=== PATIENT | female | born 1970 | race Caucasian/White ===

== ENCOUNTER 2017-10-15 10:17 | Emergency (ER) | payer OTHER ==
[2017-10-15] MEDS ORDERED: LIDOCAINE VISCOUS 2% SOLN 15 ML UDC ONE (10:51)
[2017-10-15] MEDS ORDERED: MAGNE/ALUM HYDROXD 30 ML UCUP ONE (10:51)
[2017-10-15] MEDS ORDERED: ASPIRIN 81 MG CHEWABLE TABLET ONE (10:51)
[2017-10-15 11:05] LABS: Absolute Lymphocytes (CBC) 2.7 K/uL (0.7-4.9); Absolute Monocytes 0.6 K/uL (0.1-1.3); Absolute Neutrophil 4.2 K/uL (1.8-8.0); Basophils % 0.3 % (0-1.3); Eosinophils % 1.7 % (0-4.4); Hematocrit 38.8 % (36.0-45.0); Lymphocytes % 35.1 % (15.3-44.8); MCV 89.9 fL (80-100); MPV 9.4 fL (7.6-11.3); RBC Red Blood Cell Count 4.31 M/uL (3.86-4.86)
[2017-10-15 11:13] LABS: Bicarbonate 26 mEq/L (21-31); Glucose Level 106 mg/dL (65-120); Lipase 25 U/L (22-51); Sodium Level 138 mEq/L (135-145)
--- NOTE | 2017-10-15 11:18 | RAD REPORT ---
EXAM DESCRIPTION: RAD - Chest Single View - 10/15/2017 10:56 am CLINICAL HISTORY: Chest and left shoulder pain COMPARISON: 10/05/2014 FINDINGS: Portable technique limits examination quality. The lungs are mildly emphysematous but grossly clear. The heart is normal in size. No displaced fract ures. IMPRESSION: No acute intrathoracic process suspected.
[2017-10-15 11:20] LABS: ALT/SGPT 14 IU/L (10-60); AST/SGOT 17 IU/L (10-42); Albumin 3.7 g/dL (3.2-5.5); Alkaline Phosphatase 108 IU/L (42-121); BUN Blood Urea Nitrogen 10 mg/dL (6-20); Bilirubin Direct < 0.1 mg/dL (0-0.2); Bilirubin Total 0.2 mg/dL (0.3-1.2); Creatine Phosphokinase 53 IU/L (22-269); Protein, Total 7.3 g/dL (6.0-8.3)
[2017-10-15 11:22] LABS: CKMB Creatine Kinase MB 0.7 ng/ml (0.3-4.0)
--- NOTE | 2017-10-15 11:43 | RAD REPORT ---
EXAM DESCRIPTION: US - Abdomen Exam Limited - 10/15/2017 11:36 am CLINICAL HISTORY: Abdominal pain. COMPARISON: None. FINDINGS: The gallbladder demonstrates no gallstones. No pericholecystic fluid or gallbladder wall t hickening. The common bile duct is normal measuring 4 mm. The liver demonstrates no findings of intrahepatic biliary dilatation. IMPRESSION: Unremarkable examination.
--- NOTE | 2017-10-15 12:10 | EKG ---
Test Date: 2017-10-15 Test Time: 10:36:21 Fur Dresser: RONALDO MEASUREMENT RESULTS: Intervals: Rate: 75 MS: 142 QRSD: 76 QT: 402 QTc: 448 [place]: P: 8 MS: 142 QRS: 76 T: 44 INTERPRETIVE STATEMENTS: Normal sinus rhythm Normal ECG No previous ECG available for comparison Electronically Signed On 10-15-17 12:09:02 CDT by Taj Roldan
--- NOTE | 2017-10-15 13:32 | ER ---
Nurse's Notes [facility] Name: Greta Mckinley Age: 47 yrs Sex: Female : 1970 Arrival Date: 10/15/2017 Time: 10:18 Bed 23 Private MD: Diagnosis: Chest pain, unspecified Presentation: 10/15 10:37 Presenting complaint: Patient states: started having indigestion type pain on , iw also having intermittent pain to left shoulder, radiating to left jaw, sharp pain 12/09, hx of GA with stent placement in 2013. Transition of care: patient was not received from another setting of care. Initial Sepsis Screen: Does the patient meet any 2 criteria? No. Patient's initial sepsis screen is negative. Does the patient have a suspected source of infection? No. Patient initial sepsis screen negative. Onset of symptoms was October 12, 2017. Care prior to arrival: None. 10:37 Method Of Arrival: Wheelchair iw 10:37 Acuity: ZEYAD 2 iw Historical: - Allergies: 10:42 PENICILLINS; iw - Home Meds: 10:42 None [Active]; iw - PMHx: 10:42 Myocardial infarction; iw - PSHx: 10:42 Tubal ligation; Hysterectomy; Heart stents; iw - Immunization history:: Adult Immunizations not up to date. - Family history:: not pertinent. - Social history:: Smoking status: unknown. - Hospitalizations: : No recent hospitalization is reported. Screenin:55 Abuse screen: Denies threats or abuse. Nutritional screening: No deficits noted. la1 Tuberculosis screening: No symptoms or risk factors identified. Fall Risk None identified. Assessment: 10:54 General: Appears uncomfortable, Behavior is calm, cooperative. Pain: Complains of pain la1 in anterior aspect of left upper chest and left breast Pain does not radiate. Pain began 2-3 days ago. Neuro: Level of Consciousness is awake, alert, obeys commands, Oriented to person, place, time, situation. Cardiovascular: Heart tones S1 S2 present Capillary refill < 3 seconds Patient's skin is warm and dry. Rhythm is sinus rhythm. Respiratory: Airway is patent Respiratory effort is even, unlabored, Respiratory pattern is regular, symmetrical, Breath sounds are clear bilaterally. GI: Abdomen is round non-distended, Bowel sounds present X 4 quads. Abd is soft and non tender X 4 quads. : No signs and/or symptoms were reported regarding the genitourinary system. 12:57 Reassessment: Patient appears in no apparent distress at this time. No changes from la1 previously documented assessment. Patient and/or family updated on plan of care and expected duration. Pain level reassessed. Patient is alert, oriented x 3, equal unlabored respirations, skin warm/dry/pink. Vital Signs: 10:39 BP 135 / 85; Pulse 84; Resp 18 S; Pulse Ox 95% on R/A; Pain 6/10; iw 11:48 BP 128 / 77; Pulse 66; Resp 13; Pulse Ox 100% on R/A; la1 13:20 BP 120 / 84; Pulse 65; Resp 16; Temp 97.6; Pulse Ox 100% on R/A; la1 ED Course: 10:18 Patient arrived in ED. as 10:36 Antonio Guzmán MD is Attending Physician. rn 10:37 Mehreen Rivas, VISH is Primary Nurse. iw 10:39 Triage completed. iw 10:39 Arm band placed on. iw 10:45 EKG done, by digital tech. reviewed by Antonio Guzmán MD. at1 10:53 X-ray completed. Portable x-ray completed in exam room. Patient tolerated procedure ag1 well. 10:54 XRAY Chest (1 view) In Process Unspecified. EDMS 10:54 Genaro Raymundo, RN is Primary Nurse. la1 10:55 Placed in gown. Bed in low position. Call light in reach. court monitor on. Pulse ox la1 on. NIBP on. 10:55 No provider procedures requiring assistance completed. Inserted saline lock: 20 gauge la1 in right antecubital area, using aseptic technique. Blood collected. Patient maintains SpO2 saturation greater than 95% on room air. 11:36 US Abdomen Limited In Process Unspecified. EDMS 12:54 Troponin (emerg Dept Use Only) Sent. bd 12:58 Basic Metabolic Panel Sent. dm5 13:36 IV discontinued, intact, bleeding controlled, No redness/swelling at site. Pressure la1 dressing applied. Administered Medications: 10:56 Drug: GI Cocktail without - (Maalox Suspension 30 ml, Lidocaine Liquid 2 % 15 la1 ml) Route: PO; 13:13 Follow up: Response: No adverse reaction la1 10:56 Drug: Aspirin Chewable Tablet 324 mg Route: PO; la1 13:14 Follow up: Response: No adverse reaction la1 Outcome: 13:32 Discharge ordered by . rn 13:36 Discharged to home ambulatory. la1 13:36 Condition: stable 13:36 Instructed on discharge instructions, follow up and referral plans. 13:36 Patient left the ED. la1 Signatures: Dispatcher [employer] EDMS Nimo Chamberlain Deana, RN RN Chantel Salazar Irene, RN RN iw Nieto, Roman, MD MD rn gonzales, Amanda, instrument fitter EKG Tat1 Genaro Raymundo RN RN la1 Marce Javier1
--- NOTE | 2017-10-15 13:32 | EDPHYS ---
Physician Documentation [facility] Name: Greta Mckinley Age: 47 yrs Sex: Female : 1970 Arrival Date: 10/15/2017 Time: 10:18 Bed 23 Private MD: ED Physician Antonio Guzmán HPI: 10/15 12:26 This 47 yrs old Female presents to ER via Wheelchair with complaints of Chest rn Pain. 12:26 The patient or guardian reports chest pain that is located primarily in the substernal rn area. Onset: 3 day(s) ago. The pain radiates to the left arm, the left shoulder. The chest pain is described as burning, a heaviness. Modifying factors: The symptoms are alleviated by nothing. the symptoms are aggravated by nothing. Severity of pain: At its worst the pain was moderate in the emergency department the pain has improved. The patient has experienced a previous episode. Reports substernal chest pain/upper abd pain, radiates upward to jaw/left arm, constant for 3 days, no fever/cough/sob, no vomiting. Reports had similar but not identical symptoms in past and required a stent, was having a heart attack. . Historical: - Allergies: 10:42 PENICILLINS; iw - Home Meds: 10:42 None [Active]; iw - PMHx: 10:42 Myocardial infarction; iw - PSHx: 10:42 Tubal ligation; Hysterectomy; Heart stents; iw - Immunization history:: Adult Immunizations not up to date. - Family history:: not pertinent. - Social history:: Smoking status: unknown. - Hospitalizations: : No recent hospitalization is reported. ROS: 12:26 Constitutional: Negative for fever, chills, and weight loss, Eyes: Negative for injury, rn pain, redness, and discharge, Neck: Negative for injury and swelling, Cardiovascular: Negative for palpitations, and edema, Respiratory: Negative for shortness of breath, cough, wheezing, and pleuritic chest pain, Abdomen/GI: Negative for vomiting, diarrhea, and constipation, Back: Negative for injury and pain, MS/Extremity: Negative for injury and deformity, Skin: Negative for injury, rash, and discoloration, Neuro: Negative for headache, weakness, numbness, tingling, and seizure. Exam: 12:26 Constitutional: This is a well developed, well nourished patient who is awake, alert, rn and in no acute distress. Head/Face: Normocephalic, atraumatic. Eyes: Pupils equal round and reactive to light, extra-ocular motions intact. Lids and lashes normal. Conjunctiva and sclera are non-icteric and not injected. Cornea within normal limits. Periorbital areas with no swelling, redness, or edema. Neck: Trachea midline, no thyromegaly or masses palpated, and no cervical lymphadenopathy. Supple, full range of motion without nuchal rigidity, or vertebral point tenderness. No Meningismus. Cardiovascular: Regular rate and rhythm with a normal S1 and S2. No gallops, murmurs, or rubs. Normal PMI, no JVD. No pulse deficits. Respiratory: Lungs have equal breath sounds bilaterally, clear to auscultation and percussion. No rales, rhonchi or wheezes noted. No increased work of breathing, no retractions or nasal flaring. Abdomen/GI: soft, mild epigastric tenderness, neg quintanilla MS/ Extremity: Pulses equal, no cyanosis. Neurovascular intact. Full, normal range of motion. Equal circumference. Neuro: Awake and alert, GCS 15, oriented to person, place, time, and situation. Cranial nerves II-XII grossly intact. Motor strength 5/5 in all extremities. Sensory grossly intact. Cerebellar exam normal. Vital Signs: 10:39 BP 135 / 85; Pulse 84; Resp 18 S; Pulse Ox 95% on R/A; Pain 6/10; iw 11:48 BP 128 / 77; Pulse 66; Resp 13; Pulse Ox 100% on R/A; la1 13:20 BP 120 / 84; Pulse 65; Resp 16; Temp 97.6; Pulse Ox 100% on R/A; la1 MDM: 10:36 Patient medically screened. rn 13:30 Differential diagnosis: acute myocardial infarction, acute pericarditis, anxiety, rn coronary artery disease costochondritis, esophagitis, gastritis, gastroesophageal reflux disease (GERD), stable angina, unstable angina. The patient was given aspirin in the Emergency Department. Data reviewed: vital signs, nurses notes, lab test result(s), EKG, radiologic studies, plain films, ultrasound, and as a result, I will discharge patient. Counseling: I had a detailed discussion with the patient and/or guardian regarding: the historical points, exam findings, and any diagnostic results supporting the discharge/admit diagnosis, lab results, radiology results, the need for outpatient follow up, to return to the emergency department if symptoms worsen or persist or if there are any questions or concerns that arise at home. Special discussion: I discussed with the patient/guardian in detail that at this point there is no indication for admission to the hospital. It is understood, however, that if the symptoms persist or worsen the patient needs to return immediately for re-evaluation. ED course: Repeat trop negative, ecg without ischemia, will dc home with cardiology f/u, may be angina but no acute AK, patient not helping herself as she stopped her aspirin/brilinta/and continues to smoke. 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 Return precautions given and understood. . 10/15 10:45 Order name: Basic Metabolic Panel rn 10/15 10:45 Order name: CBC with Diff; Complete Time: 11:47 rn 10/15 10:45 Order name: Ckmb; Complete Time: 11:47 rn 10/15 10:45 Order name: CPK; Complete Time: 11:47 rn 10/15 10:45 Order name: LFT's; Complete Time: 11:47 rn 10/15 10:45 Order name: Troponin (emerg Dept Use Only); Complete Time: 11:47 rn 10/15 10:45 Order name: XRAY Chest (1 view); Complete Time: 11:47 rn 10/15 10:45 Order name: Lipase; Complete Time: 11:47 rn 10/15 10:46 Order name: Basic Metabolic Panel; Complete Time: 11:47 EDMS 10/15 10:46 Order name: US Abdomen Limited; Complete Time: 11:47 rn 10/15 12:42 Order name: Troponin (emerg Dept Use Only) la1 10/15 12:43 Order name: Troponin (Emerg Dept Use Only); Complete Time: 13:32 EDMS 10/15 10:45 Order name: EKG; Complete Time: 10:46 rn 10/15 10:45 Order name: Cardiac monitoring; Complete Time: 10:56 rn 10/15 10:45 Order name: EKG - Nurse/Tech; Complete Time: 10:56 rn 10/15 10:45 Order name: IV Saline Lock; Complete Time: 10:56 rn 10/15 10:45 Order name: Labs collected and sent; Complete Time: 10: rn 10/15 10:45 Order name: O2 Per Protocol; Complete Time: : rn 10/15 10:45 Order name: O2 Sat Monitoring; Complete Time: 10:56 rn Administered Medications: 10:56 Drug: GI Cocktail without - (Maalox Suspension 30 ml, Lidocaine Liquid 2 % 15 la1 ml) Route: PO; 13:13 Follow up: Response: No adverse reaction la1 10:56 Drug: Aspirin Chewable Tablet 324 mg Route: PO; la1 13:14 Follow up: Response: No adverse reaction la1 Disposition: 10/15/17 13:32 Discharged to Home. Impression: Chest pain, unspecified. - Condition is Stable. - Discharge Instructions: Nonspecific Chest Pain, Smoking Cessation. - Medication Reconciliation Form, Thank You Letter, Antibiotic Education, Prescription Opioid Use form. - Follow up: Private Physician; When: As needed; Reason: Recheck today's complaints, Re-evaluation by your physician. - Problem is new. - Symptoms have improved. Signatures: Dispatcher [employer] EDMehreen Rick RN RN iw Nieto, Roman, MD MD rn Attema, Lee, RN RN la1 Corrections: (The following items were deleted from the chart) 10: 10:45 Urine Test ordered. arun negrete 10:56 10:46 BNP+C.LAB.BRZ ordered. EDIL EDMS
[2017-10-15 13:43] VITALS: O2SAT 100
[2017-10-15 13:44] VITALS: BP 120/84; TEMP 97.6
== END 2017-10-15 13:36 | disposition home or self-care (01) ==
LOC: ER 10:17
DX: R07.9 Chest pain, unspecified (principal); Z88.0 Allergy status to penicillin; I25.2 Old myocardial infarction; Z95.818 Presence of other cardiac implants and grafts
CPT/HCPCS: 36415; 71045; 76705; 80048; 80076; 82550; 82553; 83690; 84484; 85025; 93005; 99285

== ENCOUNTER 2018-04-12 10:48 | Emergency (ER) | payer OTHER ==
--- NOTE | 2018-04-12 12:07 | RAD REPORT ---
EXAM DESCRIPTION: RAD - Chest Pa And Lat (2 Views) - 04/12/2018 11:56 am CLINICAL HISTORY: COUGH Chest pain. COMPARISON: Chest Single View dated 10/15/2017; CHEST SINGLE VIEW dated 10/05/2014; CHEST SINGLE VIEW d ated 11/20/2013; CHEST PA AND LAT 2 VIEW dated 07/15/2013 FINDINGS: The lungs are mildly emphysematous but clear. The heart is normal in size. No displaced fr actures. IMPRESSION: Mild COPD.
--- NOTE | 2018-04-12 13:41 | EDPHYS ---
Physician Documentation [facility] Name: Greta Mckinley Age: 48 yrs Sex: Female : 1970 Arrival Date: 04/12/2018 Time: 10:52 Bed X-Ray Private MD: ED Physician Pedro Luis Olmos HPI: 04/12 14:00 This 48 yrs old Female presents to ER via Ambulatory with complaints of pm1 Breathing Difficulty. 14:00 The patient or guardian reports cough, with productive sputum, that is white, Sinus pm1 congestion and post nasal drainage. Onset: The symptoms/episode began/occurred 2 week(s) ago. Severity of symptoms: in the emergency department the symptoms are actually worse. Modifying factors: The symptoms are alleviated by nothing, the symptoms are aggravated by Coughing. Coughing causes pain to right lower ribs. Associated signs and symptoms: Pertinent negatives: chest pain, diarrhea, ear ache, fever, nausea, sore throat, vomiting. similar symptoms around this time of year. 14:00 1.5 pack smoker per day. 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 - Social history:: Smoking status: Patient uses tobacco products, smokes one-half pack cigarettes per day. - Ebola Screening: : Patient negative for fever greater than or equal to 101.5 degrees Fahrenheit, and additional compatible Ebola Virus Disease symptoms Patient denies exposure to infectious person Patient denies travel to an Ebola-affected area in the 21 days before illness onset No symptoms or risks identified at this time. ROS: 14:00 Constitutional: Negative for fever, chills, and weight loss, Eyes: Negative for injury, pm1 pain, redness, and discharge. 14:00 Neck: Negative for injury, pain, and swelling, Cardiovascular: Negative for chest pain, palpitations, and edema. 14:00 Abdomen/GI: Negative for abdominal pain, nausea, vomiting, diarrhea, and constipation, Back: Negative for injury and pain, : Negative for injury, bleeding, discharge, and swelling, MS/Extremity: Negative for injury and deformity, Skin: Negative for injury, rash, and discoloration. 14:00 ENT: Positive for sinus congestion, sinus pain, Negative for drainage from ear(s), ear pain. 14:00 Respiratory: Positive for cough, shortness of breath, Negative for wheezing. Exam: 14:00 Constitutional: This is a well developed, well nourished patient who is awake, alert, pm1 and in no acute distress. Head/Face: Normocephalic, atraumatic. Eyes: Pupils equal round and reactive to light, extra-ocular motions intact. Lids and lashes normal. Conjunctiva and sclera are non-icteric and not injected. Cornea within normal limits. Periorbital areas with no swelling, redness, or edema. ENT: Nares patent. No nasal discharge, no septal abnormalities noted. Tympanic membranes are normal and external auditory canals are clear. Oropharynx with no redness, swelling, or masses, exudates, or evidence of obstruction, uvula midline. Mucous membranes moist. Neck: Trachea midline, no thyromegaly or masses palpated, and no cervical lymphadenopathy. Supple, full range of motion without nuchal rigidity, or vertebral point tenderness. No Meningismus. Chest/axilla: Normal chest wall appearance and motion. Nontender with no deformity. No lesions are appreciated. Cardiovascular: Regular rate and rhythm with a normal S1 and S2. No gallops, murmurs, or rubs. No pulse deficits. Respiratory: Lungs have equal breath sounds bilaterally, clear to auscultation and percussion. No rales, rhonchi or wheezes noted. No increased work of breathing, no retractions or nasal flaring. Abdomen/GI: Soft, non-tender, with normal bowel sounds. No distension or tympany. No guarding or rebound. No evidence of tenderness throughout. Back: No spinal tenderness. No costovertebral tenderness. Full range of motion. Skin: Warm, dry with normal turgor. Normal color with no rashes, no lesions, and no evidence of cellulitis. MS/ Extremity: Pulses equal, no cyanosis. Neurovascular intact. Full, normal range of motion. 14:00 Head/face: Sinus tenderness, that is mild, is located over the right maxillary sinus and left maxillary sinus. 14:00 Neuro: Orientation: is normal, Motor: is normal, moves all fours, Sensation: is normal, no obvious gross deficits. Vital Signs: 10:56 BP 176 / 96; Pulse 82; Resp 17; Temp 97.2; Pulse Ox 98% on R/A; Weight 71.67 kg; Height aj 5 ft. 6 in. (167.64 cm); 14:00 BP 133 / 73; Pulse 63; Resp 14; Pulse Ox 100% ; bp 10:56 Body Mass Index 25.50 (71.67 kg, 167.64 cm) aj MDM: 11:06 Patient medically screened. pm1 13:38 Data reviewed: vital signs. Data interpreted: Pulse oximetry: on room air is 98 %. pm1 Interpretation: normal. Counseling: I had a detailed discussion with the patient and/or guardian regarding: the historical points, exam findings, and any diagnostic results supporting the discharge/admit diagnosis, radiology results, the need for outpatient follow up, for definitive care, a promotional marketing agent, to return to the emergency department if symptoms worsen or persist or if there are any questions or concerns that arise at home. 04/12 11:19 Order name: Chest Pa And Lat (2 Views) XRAY; Complete Time: 12:11 pm1 Administered Medications: 13:45 Drug: Albuterol 2.5 mg Route: Inhalation; bp 13:45 Drug: AtroVENT Aerosol 0.5 mg Route: Inhalation; bp 13:45 Drug: predniSONE 60 mg Route: PO; bp 14:33 Follow up: Response: No adverse reaction bp 13:45 Drug: TORadol 60 mg Route: IM; Site: right gluteus; bp 14:33 Follow up: Response: Pain is decreased bp Disposition: 04/13 13:09 Co-signature as Attending Physician, Pedro Luis Olmos MD I agree with the assessment and kdr plan of care. Disposition: 04/12/18 13:40 Discharged to Home. Impression: Chronic obstructive pulmonary disease with (acute) exacerbation. - Condition is Stable. - Discharge Instructions: Chronic Obstructive Pulmonary Disease, How to Use an Inhaler. - Prescriptions for Tylenol- Codeine #3 300-30 mg Oral Tablet - take 2 tablets by ORAL route every 6 hours As needed; 20 tablet. Zithromax Z- Francis 250 mg Oral Tablet - take 1 tablet by ORAL route as directed for 5 days Day 1 - take two (2) tablets one time. Day 2, 3, 4 , 5 take one (1) tablet once daily.; 6 tablet. Medrol (Francis) 4 mg Oral Tablets, Dose Pack - take 1 tablet by ORAL route as directed - follow package instructions; 1 packet. Albuterol Sulfate 90 mcg/actuation - inhale 1-2 puff by INHALATION route every 4-6 hours; 1 Inhaler. - Medication Reconciliation Form, Thank You Letter, Antibiotic Education, Prescription Opioid Use form. - Follow up: Emergency Department; When: As needed; Reason: Worsening of condition. Follow up: [place] MD; When: 2 - 3 days; Reason: Recheck today's complaints, Continuance of care, Re-evaluation by your physician. - Problem is new. - Symptoms have improved. Signatures: Dispatcher [employer] [facility] Karen Barron, RN RN Pedro Luis Villanueva MD MD kdr Alpesh Calderón NP PENOLOGY PROFESSOR pm1 Sandor Lebron RN RN bp Corrections: (The following items were deleted from the chart) 04/12 11:22 11:06 Chest Single View+RAD.RAD.BRZ ordered. [facility] 14:33 13:40 04/12/2018 13:40 Discharged to Home. Impression: Chronic obstructive pulmonary bp disease with (acute) exacerbation. Condition is Stable. Forms are Medication Reconciliation Form, Thank You Letter, Antibiotic Education, Prescription Opioid Use. Follow up: Emergency Department; When: As needed; Reason: Worsening of condition. Follow up: [place]; When: 2 - 3 days; Reason: Recheck today's complaints, Continuance of care, Re-evaluation by your physician. Problem is new. Symptoms have improved. pm1
--- NOTE | 2018-04-12 13:41 | ER ---
Nurse's Notes [facility] Name: Greta Mckinley Age: 48 yrs Sex: Female : 1970 Arrival Date: 04/12/2018 Time: 10:52 Bed X-Ray Private MD: Diagnosis: Chronic obstructive pulmonary disease with (acute) exacerbation Presentation: 04/12 10:55 Presenting complaint: Patient states: Reports persistent "chest cold" for 2 weeks. aj Transition of care: patient was not received from another setting of care. Onset of symptoms was March 31, 2018. Risk Assessment: Do you want to hurt yourself or someone else? Patient reports no desire to harm self or others. Initial Sepsis Screen: Does the patient meet any 2 criteria? No. Patient's initial sepsis screen is negative. Does the patient have a suspected source of infection? No. Patient's initial sepsis screen is negative. Care prior to arrival: None. 10:55 Method Of Arrival: Ambulatory 10:55 Acuity: ZEYAD 3 aj Triage Assessment: 10:56 General: Appears in no apparent distress. comfortable, Behavior is calm, cooperative, aj appropriate for age. Pain:. Neuro: Level of Consciousness is awake, alert, obeys commands, Oriented to person, place, time, situation, Appropriate for age. Respiratory: Reports shortness of breath cough that is Airway is patent Respiratory effort is even, unlabored, Respiratory pattern is regular, symmetrical, Breath sounds are clear bilaterally. Onset: The symptoms/episode began/occurred gradually, the patient has mild shortness of breath. Derm: Skin is intact, is healthy with good turgor, Skin is pink, warm \\T\\ dry. normal. MANAGER IMPLEMENTATION: 10:56 LMP N/A - Hysterectomy aj Historical: - Allergies: 10:56 PENICILLINS; aj - Home Meds: 10:56 None [Active]; aj - PMHx: 10:56 Myocardial infarction; aj - PSHx: 10:56 Heart stents; aj - Immunization history:: Flu vaccine is not up to date. - Social history:: Smoking status: Patient uses tobacco products, smokes one-half pack cigarettes per day. - Ebola Screening: : Patient negative for fever greater than or equal to 101.5 degrees Fahrenheit, and additional compatible Ebola Virus Disease symptoms Patient denies exposure to infectious person Patient denies travel to an Ebola-affected area in the 21 days before illness onset No symptoms or risks identified at this time. Screenin:00 Abuse screen: Denies threats or abuse. Denies injuries from another. Nutritional bp screening: No deficits noted. Tuberculosis screening: No symptoms or risk factors identified. Fall Risk None identified. Assessment: 10:59 General: Appears in no apparent distress. comfortable, obese, Behavior is cooperative, bp appropriate for age, anxious. Pain: Denies pain. Neuro: Level of Consciousness is awake, alert, obeys commands, Oriented to person, place, time, situation, Appropriate for age. Cardiovascular: Rhythm is sinus rhythm. Respiratory: Airway is patent Respiratory effort is even, unlabored, Respiratory pattern is regular, symmetrical, Breath sounds are clear bilaterally. GI: No signs and/or symptoms were reported involving the gastrointestinal system. : No signs and/or symptoms were reported regarding the genitourinary system. EENT: No deficits noted. Derm: No deficits noted. Musculoskeletal: Circulation, motion, and sensation intact. Range of motion: intact in all extremities. 12:00 Reassessment: PT RETURNED FROM [facility], RESULTS PENDING. bp 13:45 Reassessment: D/C ON HOLD FOR MEDICATION COMPLETION. bp 14:22 Reassessment: PT D/C HOME AMBULATORY, DX WITH COPD EXACERBATION. bp Vital Signs: 10:56 BP 176 / 96; Pulse 82; Resp 17; Temp 97.2; Pulse Ox 98% on R/A; Weight 71.67 kg; Height aj 5 ft. 6 in. (167.64 cm); 14:00 BP 133 / 73; Pulse 63; Resp 14; Pulse Ox 100% ; bp 10:56 Body Mass Index 25.50 (71.67 kg, 167.64 cm) aj ED Course: 10:52 Patient arrived in ED. mr 10:56 Triage completed. aj 10:56 Arm band placed on right wrist. Patient placed in an exam room. aj 10:58 Alpesh Calderón NP is PHCP. pm1 10:58 Pedro Luis Olmos MD is Attending Physician. pm1 10:59 Sandor Lebron, VISH is Primary Nurse. bp 11:00 Patient has correct armband on for positive identification. Bed in low position. Call bp light in reach. Side rails up X2. 11:55 Chest Pa And Lat (2 Views) XRAY In Process Unspecified. EDMS 13:38 [place] Sim MD is Referral Physician. pm1 14:03 No provider procedures requiring assistance completed. Patient did not have IV access bp during this emergency room visit. Administered Medications: 13:45 Drug: Albuterol 2.5 mg Route: Inhalation; bp 13:45 Drug: AtroVENT Aerosol 0.5 mg Route: Inhalation; bp 13:45 Drug: predniSONE 60 mg Route: PO; bp 14:33 Follow up: Response: No adverse reaction bp 13:45 Drug: TORadol 60 mg Route: IM; Site: right gluteus; bp 14:33 Follow up: Response: Pain is decreased bp Outcome: 13:40 Discharge ordered by MD. pm1 14:22 Discharged to home ambulatory. bp 14:22 Condition: stable 14:22 Discharge instructions given to patient, Instructed on discharge instructions, follow up and referral plans. medication usage, Demonstrated understanding of instructions, follow-up care, medications, Prescriptions given X 4. 14:33 Patient left the ED. bp Signatures: Dispatcher [employer] EDNM Karen Barron, Ju Gonzalez RN, Patrick, PRODUCT DEVELOPMENT MANAGER PRODUCT DEVELOPMENT MANAGER pm1 Sandor Lebron RN RN bp Corrections: (The following items were deleted from the chart) 14:23 14:22 Discharge instructions given to patient, Instructed on discharge instructions, bp follow up and referral plans. medication usage, Demonstrated understanding of instructions, follow-up care, medications, Prescriptions given X 1, bp
[2018-04-12] MEDS ORDERED: ALBUTEROL 2.5 MG/3 ML NEB SOL ONE (13:46)
[2018-04-12] MEDS ORDERED: KETOROLAC 30 MG/ML INJ ONE (13:46)
[2018-04-12] MEDS ORDERED: IPRATROPIUM BROM 0.5MG/2.5ML ONE (13:46)
[2018-04-12] MEDS ORDERED: predniSONE 20 MG TAB ONE (13:46)
[2018-04-12 14:51] VITALS: TEMP 97.2
[2018-04-12 14:53] VITALS: BP 133/73; O2SAT 100
== END 2018-04-12 14:33 | disposition home or self-care (01) ==
LOC: ER 10:48
DX: J44.1 Chronic obstructive pulmonary disease with (acute) exacerbation (principal); F17.210 Nicotine dependence, cigarettes, uncomplicated; I25.2 Old myocardial infarction; Z88.0 Allergy status to penicillin
CPT/HCPCS: 71046; 96372; 99284; J7512

== ENCOUNTER 2018-12-05 17:47 | Emergency (ER) | payer OTHER ==
--- NOTE | 2018-12-05 18:47 | RAD REPORT ---
EXAM DESCRIPTION: RAD - Shoulder Right 2 View - 12/05/2018 6:38 pm CLINICAL HISTORY: PAIN COMPARISON: No comparisons FINDINGS: Mild AC joint degenerative changes are present. No fracture or dislocation seen.
--- NOTE | 2018-12-05 18:49 | RAD REPORT ---
EXAM DESCRIPTION: RAD - Elbow Right 3 View - 12/05/2018 6:38 pm CLINICAL HISTORY: PAIN COMPARISON: No comparisons FINDINGS: No fracture or dislocation is seen.
--- NOTE | 2018-12-05 18:55 | RAD REPORT ---
EXAM DESCRIPTION: RAD - Wrist Right 3 View - 12/05/2018 6:38 pm CLINICAL HISTORY: PAIN Pain COMPARISON: No comparisons FINDINGS: Mild radiocarpal joint arthritic changes are present. No acute fracture or dislocation se en.
--- NOTE | 2018-12-05 18:56 | RAD REPORT ---
EXAM DESCRIPTION: RAD - Elbow Left 3 View - 12/05/2018 6:38 pm CLINICAL HISTORY: PAIN COMPARISON: No comparisons FINDINGS: The anterior and posterior fat pad of the elbow appears prominent. This typically indicate s presence of a fracture, usually in the radial head and neck region in this age group. However, defi nitive fracture is not seen on these radiographs. For this reason, advise a follow-up examination 7-1 0 days.
--- NOTE | 2018-12-05 18:57 | RAD REPORT ---
EXAM DESCRIPTION: RAD - Wrist Left 3 View - 12/05/2018 6:38 pm CLINICAL HISTORY: PAIN Pain COMPARISON: No comparisons FINDINGS: Hardware is present in the distal radius. Mild radiocarpal arthritic changes seen. Old u lnar styloid avulsion is present. IMPRESSION: No acute finding demonstrated.
[2018-12-05] MEDS ORDERED: IBUPROFEN 400 MG TAB ONE (19:01)
[2018-12-05] MEDS ORDERED: IBUPROFEN 200 MG TAB PO ONE (19:01)
[2018-12-05] MEDS ORDERED: HYDROCODONE/APAP 5/325 MG TAB ONE ×2 (19:01→20:37)
--- NOTE | 2018-12-05 19:23 | ER ---
Nurse's Notes [facility] Name: Greta Mckinley Age: 48 yrs Sex: Female : 1970 Arrival Date: 12/05/2018 Time: 17:49 Bed 14 Private MD: Diagnosis: Pain in right shoulder;Pain in right elbow;Pain in right wrist;Pain in left elbow;Pain in left wrist Presentation: 12/05 17:53 Presenting complaint: Patient states: Reports bilateral lower arm pain after falling aj and catching herself at 1645 today. Care prior to arrival: None. Mechanism of Injury: Fall from standing position. Trauma event details: Injury occurred in the [facility], Injury occurred: at home. Injury occurred: December 05, 2018 Injury occurred at: 16:45. 17:53 Acuity: ZEYAD 4 aj 17:53 Method Of Arrival: Ambulatory aj 18:00 Transition of care: patient was not received from another setting of care. Onset of rb1 symptoms was December 05, 2018 at 17:40. Risk Assessment: Do you want to hurt yourself or someone else? Patient reports no desire to harm self or others. Initial Sepsis Screen: Does the patient meet any 2 criteria? No. Patient's initial sepsis screen is negative. Does the patient have a suspected source of infection? No. Patient's initial sepsis screen is negative. Trauma Activation: Not Applicable Physician: ED Physician; Name: ; Notified At: ; Arrived At: Physician: General Surgeon; Name: ; Notified At: ; Arrived At: Physician: Radiology; Name: ; Notified At: ; Arrived At: Physician: Respiratory; Name: ; Notified At: ; Arrived At: Physician: Lab; Name: ; Notified At: ; Arrived At: Historical: - Allergies: 18:00 PENICILLINS; rb1 - PMHx: 18:00 Myocardial infarction; rb1 - PSHx: 18:00 Heart stents; rb1 - Immunization history: Last tetanus immunization: > 10 years ago. - Social history:: Smoking status: Patient/guardian denies using tobacco. - Ebola Screening: : Patient negative for fever greater than or equal to 101.5 degrees Fahrenheit, and additional compatible Ebola Virus Disease symptoms. Screenin:00 Abuse screen: Denies threats or abuse. Nutritional screening: No deficits noted. rb1 Tuberculosis screening: No symptoms or risk factors identified. Fall Risk Fall in past 12 months (25 points). No secondary diagnosis (0 pts). No IV (0 pts). Ambulatory Aid- None/Bed Rest/Nurse Assist (0 pts). Gait- Normal/Bed Rest/Wheelchair (0 pts) Mental Status- Oriented to own ability (0 pts). Total Lucero Fall Scale indicates Low Risk Score (25-44 pts). Fall prevention measures have been instituted. Side Rails Up X 2 Placed close to Nursing Station 1:1 attendant Assigned to Pt. Frequent Obs/Assesments occuring Family Present and informed to notify staff if they need to leave bedside As available Patient and Family Educated on Fall Prevention Program and strategies. Assessment: 17:53 General: Appears in no apparent distress. comfortable, Behavior is calm, cooperative, aj appropriate for age. Pain: Complains of pain in right wrist, palmar aspect of right forearm, dorsal aspect of left forearm, left wrist and palmar aspect of left forearm. Neuro: Level of Consciousness is awake, alert, obeys commands, Oriented to person, place, time, situation, Appropriate for age. Respiratory: Airway is patent Respiratory effort is even, unlabored, Respiratory pattern is regular, symmetrical. Derm: Skin is intact, is healthy with good turgor, Skin is pink, warm \T\ dry. normal. 18:00 General: Appears in no apparent distress. comfortable, Behavior is calm, cooperative. rb1 Pain: Complains of pain in left arm and right arm Pain currently is 5 out of 10 on a pain scale. at worst was 10 out of 10 on a pain scale. Neuro: Level of Consciousness is awake, alert, obeys commands, Oriented to person, place, time, situation. Cardiovascular: Capillary refill < 3 seconds is brisk in bilateral fingers. Respiratory: Airway is patent Respiratory effort is even, unlabored, Respiratory pattern is regular, symmetrical. GI: No signs and/or symptoms were reported involving the gastrointestinal system. : No signs and/or symptoms were reported regarding the genitourinary system. Derm: Skin is pink, warm \T\ dry. Musculoskeletal: Range of motion: limited in left and right shoulder. 18:53 Reassessment: Patient appears in no apparent distress at this time. No changes from rb1 previously documented assessment. Family at bedside. 20:15 Reassessment: Patient appears in no apparent distress at this time. Patient aware of lp1 discharge; States pain to bilateral arms; Provider notified. 20:20 Reassessment: Splints approved by Provider. lp1 Vital Signs: 17:53 BP 125 / 68; Pulse 88; Resp 19; Temp 98.1; Pulse Ox 98% on R/A; Weight 85.73 kg; Height aj 5 ft. 6 in. (167.64 cm); 18:47 BP 128 / 83; Pulse 88; Resp 18; Temp 97.7(O); Pulse Ox 96% on R/A; mh5 17:53 Body Mass Index 30.51 (85.73 kg, 167.64 cm) aj ED Course: 17:49 Patient arrived in ED. ds1 17:55 Triage completed. aj 18:00 Alpesh Calderón NP is PHCP. pm1 18:00 Dane Lorenzo MD is Attending Physician. pm1 18:00 Arm band placed on right wrist. rb1 18:40 Shoulder Right (2 View) XRAY In Process Unspecified. EDMS 18:40 Elbow Left 3 View XRAY In Process Unspecified. EDMS 18:40 Elbow Right 3 View XRAY In Process Unspecified. EDMS 18:40 Wrist Left (3 View) XRAY In Process Unspecified. EDMS 18:40 Kimberlee Haywood, VISH is Primary Nurse. rb1 18:41 Wrist Right 3 View XRAY In Process Unspecified. EDMS 18:49 Patient has correct armband on for positive identification. Bed in low position. Call mh5 light in reach. Side rails up X 1. Adult w/ patient. Warm blanket given. Pulse ox on. NIBP on. 19:00 Report given to VISH App[place]. rb1 20:24 Orthoglass splint: posterior elbow Velcro wrist splint applied to right wrist. Sling mw2 applied to left arm. provider examined splint. 20:26 No provider procedures requiring assistance completed. Patient did not have IV access lp1 during this emergency room visit. Administered Medications: 18:48 Drug: Ibuprofen 600 mg Route: PO; rb1 20:25 Follow up: Response: Pain is decreased lp1 18:49 Drug: [place] 5 mg-325 mg 1 tabs Route: PO; rb1 20:25 Follow up: Response: Pain is decreased lp1 20:25 Drug: [place] 5 mg-325 mg 1 tabs Route: PO; lp1 20:25 Follow up: Response: Medication administered at discharge. lp1 Outcome: 19:22 Discharge ordered by . pm1 20:26 Discharged to home ambulatory, with significant other. lp1 20:26 Condition: good 20:26 Discharge instructions given to patient, Instructed on discharge instructions, follow up and referral plans. medication usage, Demonstrated understanding of instructions, follow-up care, medications, Prescriptions given X 1. 20:29 Patient left the ED. lp1 Signatures: Dispatcher [employer] EDKaren Vincent RN Jennifer Berry ds1 Bijal Greenwood RN RN lp1 Kimberlee Haywood RN RN rb1 Alpesh Calderón NP PATTERN SHOP SUPERVISOR 1 Brenda Payne [facility] Kia Robin 2
--- NOTE | 2018-12-05 19:23 | EDPHYS ---
Physician Documentation [facility] Name: Greta Mckinley Age: 48 yrs Sex: Female : 1970 Arrival Date: 12/05/2018 Time: 17:49 Bed 14 Private MD: ED Physician Dane Lorenzo HPI: 12/05 18:06 This 48 yrs old Female presents to ER via Ambulatory with complaints of Fall pm1 Injury, Arm Pain. 18:06 Details of fall: The patient fell from an upright position, while walking. Onset: The pm1 symptoms/episode began/occurred just prior to arrival. Associated injuries: The patient sustained right elbow, right wrist, left wrist, left elbow, and left shoulder. Severity of symptoms: in the emergency department the symptoms are unchanged. The patient has not experienced similar symptoms in the past. The patient has not recently seen a physician. Patient was walking on her driveway with slippers and tripped on her slippers. Fell forward and braced her fall with both hands in front of her. No headache, head injury, neck pain, LOC. Historical: - Allergies: 18:00 PENICILLINS; rb1 - PMHx: 18:00 Myocardial infarction; rb1 - PSHx: 18:00 Heart stents; rb1 - Immunization history: Last tetanus immunization: > 10 years ago. - Social history:: Smoking status: Patient/guardian denies using tobacco. - Ebola Screening: : Patient negative for fever greater than or equal to 101.5 degrees Fahrenheit, and additional compatible Ebola Virus Disease symptoms. ROS: 18:06 Constitutional: Negative for fever, chills, and weight loss, Eyes: Negative for injury, pm1 pain, redness, and discharge, ENT: Negative for injury, pain, and discharge, Neck: Negative for injury, pain, and swelling, Cardiovascular: Negative for chest pain, palpitations, and edema, Respiratory: Negative for shortness of breath, cough, wheezing, and pleuritic chest pain, Abdomen/GI: Negative for abdominal pain, nausea, vomiting, diarrhea, and constipation, Back: Negative for injury and pain, : Negative for injury, bleeding, discharge, and swelling. 18:06 Skin: Negative for injury, rash, and discoloration. 18:06 Neuro: Negative for headache, weakness, numbness, tingling, and seizure. 18:06 MS/extremity: Positive for pain, of the right elbow and right wrist and left wrist and left elbow and right shoulder. Exam: 18:06 Constitutional: This is a well developed, well nourished patient who is awake, alert, pm1 and in no acute distress. Head/Face: Normocephalic, atraumatic. Eyes: Pupils equal round and reactive to light, extra-ocular motions intact. Lids and lashes normal. Conjunctiva and sclera are non-icteric and not injected. Cornea within normal limits. Periorbital areas with no swelling, redness, or edema. ENT: Nares patent. No nasal discharge, no septal abnormalities noted. Tympanic membranes are normal and external auditory canals are clear. Oropharynx with no redness, swelling, or masses, exudates, or evidence of obstruction, uvula midline. Mucous membranes moist. Neck: Trachea midline, no thyromegaly or masses palpated, and no cervical lymphadenopathy. Supple, full range of motion without nuchal rigidity, or vertebral point tenderness. No Meningismus. Chest/axilla: Normal chest wall appearance and motion. Nontender with no deformity. No lesions are appreciated. Cardiovascular: Regular rate and rhythm with a normal S1 and S2. No gallops, murmurs, or rubs. Normal PMI, no JVD. No pulse deficits. Respiratory: Lungs have equal breath sounds bilaterally, clear to auscultation and percussion. No rales, rhonchi or wheezes noted. No increased work of breathing, no retractions or nasal flaring. Abdomen/GI: Soft, non-tender, with normal bowel sounds. No distension or tympany. No guarding or rebound. No evidence of tenderness throughout. Back: No spinal tenderness. No costovertebral tenderness. Full range of motion. Skin: Warm, dry with normal turgor. Normal color with no rashes, no lesions, and no evidence of cellulitis. 18:06 Musculoskeletal/extremity: Extremities: grossly normal except: tenderness to right elbow, right wrist, left wrist, and left elbow. Patient able to move joints of right and left arm full range of motion with pain.. 18:06 Neuro: Orientation: is normal, Motor: is normal, moves all fours. Vital Signs: 17:53 BP 125 / 68; Pulse 88; Resp 19; Temp 98.1; Pulse Ox 98% on R/A; Weight 85.73 kg; Height aj 5 ft. 6 in. (167.64 cm); 18:47 BP 128 / 83; Pulse 88; Resp 18; Temp 97.7(O); Pulse Ox 96% on R/A; mh5 17:53 Body Mass Index 30.51 (85.73 kg, 167.64 cm) aj Procedures: 20:30 Splinting: Splint applied to left wrist and left elbow using Orthoglass splint, applied pm1 by tech. Examined by me, post splint application: neurovascular intact, 2+ distal pulses palpable, brisk capillary refill noted, Patient tolerated well, posterior elbow splint with cock up left wrist splint. 20:30 Splinting: Splint applied to right wrist using wrist splint, applied by tech. Examined pm1 by me, post splint application: neurovascular intact, 2+ distal pulses palpable, brisk capillary refill noted, Patient tolerated well. MDM: 18:04 Patient medically screened. [facility] 19:20 Data reviewed: vital signs. Data interpreted: Pulse oximetry: on room air is 96 %. pm1 Interpretation: normal. Counseling: I had a detailed discussion with the patient and/or guardian regarding: radiology results, the need for outpatient follow up, for definitive care, a orthopedic surgeon, to return to the emergency department if symptoms worsen or persist or if there are any questions or concerns that arise at home. 12/05 18:18 Order name: Shoulder Right (2 View) XRAY; Complete Time: 19:05 pm1 12/05 18:18 Order name: Elbow Left 3 View XRAY; Complete Time: 19:05 pm1 12/05 18:18 Order name: Elbow Right 3 View XRAY; Complete Time: 19:05 pm1 12/05 18:18 Order name: Wrist Left (3 View) XRAY; Complete Time: 19:05 pm1 12/05 18:18 Order name: Wrist Right 3 View XRAY; Complete Time: 19:05 pm1 12/05 19:07 Order name: Posterior Elbow Splint: Left elbow; Complete Time: 20:25 pm1 12/05 19:08 Order name: Wrist Splint: Right; Complete Time: 20:25 pm1 12/05 19:08 Order name: Sling; Complete Time: 20:25 pm1 Administered Medications: 18:48 Drug: Ibuprofen 600 mg Route: PO; rb1 20:25 Follow up: Response: Pain is decreased lp1 18:49 Drug: [place] 5 mg-325 mg 1 tabs Route: PO; rb1 20:25 Follow up: Response: Pain is decreased lp1 20:25 Drug: [place] 5 mg-325 mg 1 tabs Route: PO; lp1 20:25 Follow up: Response: Medication administered at discharge. lp1 Disposition: 12/06 07:18 Co-signature as Attending Physician, Dane Lorenzo MD I agree with the assessment and jose plan of care. Disposition: 12/05/18 19:22 Discharged to Home. Impression: Pain in left elbow, Pain in right shoulder, Pain in right elbow, Pain in right wrist, Pain in left wrist. - Condition is Stable. - Discharge Instructions: Cast or Splint Care, Adult, Musculoskeletal Pain, Shoulder Pain, Wrist Splint, How to Use a Sling. - Prescriptions for Tylenol- Codeine #3 300-30 mg Oral Tablet - take 2 tablets by ORAL route every 6 hours As needed; 20 tablet. - Medication Reconciliation Form, Thank You Letter, Antibiotic Education, Prescription Opioid Use form. - Follow up: Emergency Department; When: As needed; Reason: Worsening of condition. Follow up: Private Physician; When: 2 - 3 days; Reason: Recheck today's complaints, Continuance of care, Re-evaluation by your physician. - Problem is new. - Symptoms have improved. Signatures: Dispatcher [employer] EDKaren Vincent RN RN aj Anderson, Corey, MD MD cha Pena, Laura RN RN lp1 Kimberlee Haywood RN RN rb1 Alpesh Calderón NP RADIO TIME BUYER pm1 Corrections: (The following items were deleted from the chart) 12/05 20:29 19:22 12/05/2018 19:22 Discharged to Home. Impression: Pain in left elbowPain in right lp1 shoulder; Pain in right elbow; Pain in right wrist; Pain in left wrist. Condition is Stable. Forms are Medication Reconciliation Form, Thank You Letter, Antibiotic Education, Prescription Opioid Use. Follow up: Emergency Department; When: As needed; Reason: Worsening of condition. Follow up: Private Physician; When: 2 - 3 days; Reason: Recheck today's complaints, Continuance of care, Re-evaluation by your physician. Problem is new. Symptoms have improved. pm1
[2018-12-05 22:02] VITALS: BP 128/83; TEMP 97.7; O2SAT 96
== END 2018-12-05 20:29 | disposition home or self-care (01) ==
LOC: ER 17:47
PROC: 2W39X1Z Immobilization of Left Upper Extremity using Splint (ICD-10-PCS; principal; 2018-12-05)
PROC: 2W3CX1Z Immobilization of Right Lower Arm using Splint (ICD-10-PCS; 2018-12-05)
DX: M25.521 Pain in right elbow (principal); M25.522 Pain in left elbow; M25.511 Pain in right shoulder; M25.532 Pain in left wrist; M25.531 Pain in right wrist; Z88.0 Allergy status to penicillin; I25.2 Old myocardial infarction
CPT/HCPCS: 99284

== ENCOUNTER 2019-12-08 14:49 | Observation (INO) | payer OTHER ==
[2019-12-08 15:33] LABS: Protime INR 0.91
[2019-12-08 15:37] LABS: Absolute Lymphocytes (CBC) 3.3 K/uL (0.7-4.9); Basophils % 0.4 % (0-1.3); Lymphocytes % 38.4 % (15.3-44.8); MPV 9.6 fL (7.6-11.3); RBC Red Blood Cell Count 4.59 M/uL (3.86-4.86)
[2019-12-08] MEDS ORDERED: ASPIRIN 81 MG CHEWABLE TABLET ONE (15:50)
--- NOTE | 2019-12-08 15:50 | RAD REPORT ---
EXAM DESCRIPTION: [place] Single View12/08/2019 3:37 pm CLINICAL HISTORY: Chest pain COMPARISON: 2017 FINDINGS: The lungs appear clear of acute infiltrate. The heart is normal size IMPRESSION: No acute abnormalities displayed
[2019-12-08 15:52] LABS: ALT/SGPT 21 U/L (12-78); AST/SGOT 15 U/L (15-37); Albumin 3.7 g/dL (3.4-5.0); Alkaline Phosphatase 124 U/L (45-117); BUN Blood Urea Nitrogen 10 mg/dL (7-18); Bicarbonate 26 mmol/L (21-32); Bilirubin Direct < 0.1 mg/dL (0-0.2); Bilirubin Total 0.3 mg/dL (0.2-1.0); Glucose Level 95 mg/dL (74-106); Magnesium 2.3 mg/dL (1.8-2.4); NT PRO-BNP 61 pg/mL (<125); Potassium 3.6 mmol/L (3.5-5.1); Protein, Total 8.2 g/dL (6.4-8.2); Sodium Level 139 mmol/L (136-145); Troponin (Emerg Dept Use Only) < 0.02 ng/mL (0.0-0.045)
[2019-12-08] MEDS ORDERED: PANTOPRAZOLE 40 MG INJ ONE (16:46)
--- NOTE | 2019-12-08 17:10 | ER ---
Nurse's Notes [facility] Name: Greta Mckinley Age: 49 yrs Sex: Female : 1970 Arrival Date: 12/08/2019 Time: 14:52 Bed 8 Private MD: Diagnosis: Chest pain, unspecified Presentation: 12/07 15:04 Chief complaint: Patient states: Indigestion and nausea x 3 days, chest pressure jl7 started this morning. Coronavirus screen: Proceed with normal triage. Patient denies a cough. Patient denies shortness of breath or difficulty breathing. Patient denies measured and/or subjective temperature greater than 100.4F prior to today's visit. Patient denies travel on a cruise ship or to a country the [facility] currently lists as an affected area. Patient denies contact with known and/or suspected case of COVID-19. Ebola Screen: No symptoms or risks identified at this time. Initial Sepsis Screen: Does the patient meet any 2 criteria? No. Patient's initial sepsis screen is negative. Does the patient have a suspected source of infection? No. Patient's initial sepsis screen is negative. Risk Assessment: Do you want to hurt yourself or someone else? Patient reports no desire to harm self or others. Onset of symptoms was December 05, 2019. Care prior to arrival: None. 15:04 Method Of Arrival: Ambulatory [facility] 15:04 Acuity: ZEYAD 2 jl7 Triage Assessment: 15:07 General: Appears in no apparent distress. uncomfortable, Behavior is cooperative, jl7 appropriate for age, anxious. Pain: Complains of pain in anterior aspect of left upper chest Pain currently is 5 out of 10 on a pain scale. Quality of pain is described as pressure, Pain began 2-3 days ago. Is continuous. Neuro: Level of Consciousness is awake, alert, obeys commands, Oriented to person, place, time, situation. Cardiovascular: Patient's skin is warm and dry. Respiratory: Airway is patent Respiratory effort is even, unlabored, Respiratory pattern is regular, symmetrical, Denies shortness of breath. GI: Reports nausea. Derm: Skin is pink, warm \T\ dry. 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 - Social history:: Smoking status: Patient reports the use of cigarette tobacco products, smokes one-half pack cigarettes per day. Screenin:09 Abuse screen: Denies threats or abuse. Denies injuries from another. Nutritional jl7 screening: No deficits noted. Tuberculosis screening: No symptoms or risk factors identified. Fall Risk IV access (20 points). Total Lucero Fall Scale indicates No Risk (0-24 pts). Assessment: 15:09 General: See triage assessment. jl7 16:00 Reassessment: Patient appears in no apparent distress at this time. No changes from [facility] previously documented assessment. Patient and/or family updated on plan of care and expected duration. Pain level reassessed. Patient is alert, oriented x 3, equal unlabored respirations, skin warm/dry/pink. 16:57 Reassessment: ALL CURRENT ORDERS COMPLETED, S/S MARKEDLY IMPROVED. bp 17:12 Reassessment: Dr. Koroma at bedside assessing pt. jl7 17:25 Reassessment: ADMIT INITIATED. PT AFFIRMS EXERTIONAL CP. bp 18:35 Reassessment: Attempted to call report, nurse unavailable. jl7 18:49 Reassessment: Patient appears in no apparent distress at this time. Patient and/or jl7 family updated on plan of care and expected duration. Pain level reassessed. Patient is alert, oriented x 3, equal unlabored respirations, skin warm/dry/pink. Patient states feeling better. 19:33 Pain: wh Vital Signs: 15:04 BP 138 / 80; Pulse 74; Resp 19; Temp 97.6; Pulse Ox 97% ; Weight 85.73 kg; Height 5 ft. jl7 6 in. (167.64 cm); Pain 5/10; 15:04 BP 138 / 80 LA; jl7 15:32 BP 143 / 80 RA; Pulse 75; Resp 17 S; Pulse Ox 95% on R/A; jl7 16:57 BP 123 / 80; Pulse 72; Resp 17; Pulse Ox 97% ; bp 17:24 BP 134 / 70; Pulse 82; Resp 17; Pulse Ox 98% ; bp 17:32 Pain 3/10; jl7 18:49 BP 134 / 62; Pulse 63; Resp 17 S; Pulse Ox 100% on R/A; jl7 19:36 BP 149 / 76; Pulse 65; Resp 18; Pulse Ox 99% on R/A; wh 15:04 Body Mass Index 30.51 (85.73 kg, 167.64 cm) 7 ED Course: 14:52 Patient arrived in ED. as 14:52 Arm band placed on Patient placed in an exam room, on a stretcher. aa5 14:52 Patient has correct armband on for positive identification. Placed in gown. Bed in low aa5 position. Call light in reach. Side rails up X2. security monitor on. Pulse ox on. NIBP on. 14:54 Ricardo Hardy, VISH is Primary Nurse. jl7 14:57 EKG done, by ED staff, reviewed by Pedro Luis Olmos MD. 3 15:07 Triage completed. jl7 15:09 Initial lab(s) drawn, by ri, sent to lab. EKG done, by ED staff, reviewed by Pedro Luis Olmos MD. Inserted saline lock: 20 gauge in right antecubital area, using aseptic technique. Patient maintains SpO2 saturation greater than 95% on room air. 15:14 Dane Waldrop PA is PHCP. cp 15:14 Pedro Luis Olmos MD is Attending Physician. cp 15:40 XRAY Chest (1 view) In Process Unspecified. EDMS 17:09 Ute Koroma MD is Hospitalizing Provider. cp 19:32 No provider procedures requiring assistance completed. Patient admitted, IV remains in place. 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 jl7 17:10 Follow up: Response: No adverse reaction jl7 15:40 Drug: NS 0.9% 1000 ml Route: IV; Rate: 100 ml/hr; Site: right antecubital; jl7 18:45 Follow up: IV Status: Infusion continued upon admission jl7 15:40 Drug: Zofran (Ondansetron) 4 mg Route: IVP; Site: right antecubital; jl7 17:10 Follow up: Response: No adverse reaction 7 15:42 Drug: morphine 2 mg Route: IVP; Site: right antecubital; jl7 15:50 Follow up: Response: No adverse reaction; Pain is decreased jl7 16:25 Drug: ProTONIX 40 mg Route: IVP; Site: right antecubital; bp 17:10 Follow up: Response: No adverse reaction; No change in condition jl7 17:10 Drug: morphine 2 mg Route: IVP; Site: right antecubital; jl7 17:31 Follow up: Response: No adverse reaction; No change in condition jl7 17:11 Drug: Nitroglycerin 0.4 mg Route: Sublingual; jl7 17:31 Follow up: Response: No adverse reaction; No change in condition jl7 Intake: Outcome: 17:09 Decision to Hospitalize by Provider. cp 19:32 Admitted to Med/surg accompanied by tech, via wheelchair, room 209, with chart, Report wh called to Evelyn Pang RN 19:32 Condition: stable 19:32 Instructed on the need for admit. 19:45 Patient left the ED. Signatures: Dispatcher [employer] EDMS Chantel Payne Audri, RN RN aa5 Dane Waldrop PA PA cp Ricardo Hardy, RN RN jl7 Gladys Duke 3 Majo Villegas Sandor Lebron, RN RN bp Corrections: (The following items were deleted from the chart) 16:57 16:00 BP 123 / 80; Pulse 72bpm; Resp 17bpm; Pulse Ox 97%; bp bp
--- NOTE | 2019-12-08 17:10 | EDPHYS ---
Physician Documentation [facility] Name: Greta Mckinley Age: 49 yrs Sex: Female : 1970 Arrival Date: 12/08/2019 Time: 14:52 Bed 8 Private MD: ED Physician Pedro Luis Olmos HPI: 12/07 15:10 This 49 yrs old Female presents to ER via Ambulatory with complaints of Chest cp Pain. 15:10 The patient or guardian reports chest pain that is located primarily in the substernal cp area. 15:10 Onset: this morning. The pain radiates to the left shoulder, left neck. Associated cp signs and symptoms: Pertinent positives: indigestion and nausea times 3 days, Pertinent negatives: abdominal pain, cough, diaphoresis, lower extremity pain, lower extremity swelling, shortness of breath, syncope, vomiting. The chest pain is described as a pressure. Duration: The patient or guardian reports a single episode, that is still ongoing, and unchanged. 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 - Social history:: Smoking status: Patient reports the use of cigarette tobacco products, smokes one-half pack cigarettes per day. ROS: 15:20 Constitutional: Negative for body aches, chills, fever, poor PO intake. cp 15:20 Eyes: Negative for injury, pain, redness, and discharge. cp 15:20 ENT: Negative for ear pain, sore throat, difficulty swallowing, difficulty handling secretions. 15:20 Cardiovascular: Positive for chest pain, Negative for edema, palpitations. 15:20 Respiratory: Negative for cough, shortness of breath, wheezing. 15:20 Abdomen/GI: Positive for nausea, Negative for vomiting, diarrhea, constipation. 15:20 Back: Negative for radiated pain. 15:20 : Negative for urinary symptoms. 15:20 Skin: Negative for rash. 15:20 Neuro: Negative for altered mental status, dizziness, headache, syncope, weakness. 15:20 All other systems are negative. cp Exam: 15:10 ECG was reviewed by the Attending Physician. cp 15:25 Constitutional: The patient appears in no acute distress, alert, awake, cp non-diaphoretic, non-toxic, well developed, well nourished. 15:25 Head/Face: Normocephalic, atraumatic. cp 15:25 Eyes: Periorbital structures: appear normal, Conjunctiva: normal, no exudate, no injection, Sclera: no appreciated abnormality, Lids and lashes: appear normal, bilaterally. 15:25 ENT: External ear(s): are unremarkable, Nose: is normal, Mouth: is normal, Posterior pharynx: is normal, airway is patent, no erythema, no exudate. 15:25 Neck: ROM/movement: is normal, is supple, no range of motions limitations, no nuchal rigidity. 15:25 Chest/axilla: Inspection: normal, Palpation: is normal, no crepitus, no tenderness. 15:25 Cardiovascular: Rate: normal, Rhythm: regular, Edema: is not appreciated, JVD: is not appreciated. 15:25 Respiratory: the patient does not display signs of respiratory distress, Respirations: normal, no use of accessory muscles, no retractions, labored breathing, is not present, Breath sounds: are clear throughout, no decreased breath sounds, no stridor, no wheezing. 15:25 Abdomen/GI: Inspection: abdomen appears normal, Bowel sounds: active, all quadrants, Palpation: abdomen is soft and non-tender, in all quadrants. 15:25 Back: pain, is absent, ROM is normal. 15:25 Neuro: Orientation: to person, place \T\ time. Mentation: is normal, Cerebellar function: is grossly normal, Motor: moves all fours, strength is normal, Sensation: is normal. Vital Signs: 15:04 BP 138 / 80; Pulse 74; Resp 19; Temp 97.6; Pulse Ox 97% ; Weight 85.73 kg; Height 5 ft. jl7 6 in. (167.64 cm); Pain 5/10; 15:04 BP 138 / 80 LA; jl7 15:32 BP 143 / 80 RA; Pulse 75; Resp 17 S; Pulse Ox 95% on R/A; jl7 16:57 BP 123 / 80; Pulse 72; Resp 17; Pulse Ox 97% ; bp 17:24 BP 134 / 70; Pulse 82; Resp 17; Pulse Ox 98% ; bp 17:32 Pain 3/10; jl7 18:49 BP 134 / 62; Pulse 63; Resp 17 S; Pulse Ox 100% on R/A; jl7 19:36 BP 149 / 76; Pulse 65; Resp 18; Pulse Ox 99% on R/A; wh 15:04 Body Mass Index 30.51 (85.73 kg, 167.64 cm) [facility] MDM: 15:18 Patient medically screened. 17:00 Data reviewed: vital signs, nurses notes, lab test result(s), EKG, radiologic studies, cp plain films, I have discussed the patient's presentation/case with the attending Emergency Department Physician; and as a result, I will admit patient. 17:00 The patient was given aspirin in the Emergency Department. Test interpretation: by ED cp physician or midlevel provider: ECG. 17:06 Physician consultation: Ute Koroma MD was called at 17:00, was contacted at 17:00, cp regarding admission, to the telemetry unit. patient's condition. 12/07 15:03 Order name: Basic Metabolic Panel; Complete Time: 16:15 [facility] 12/07 16:16 Interpretation: Normal except: GFR 89. 12/07 15:03 Order name: CBC with Diff; Complete Time: 16:15 [facility] 12/07 15:03 Order name: LFT's; Complete Time: 16:15 [facility] 12/07 16:53 Interpretation: Normal except: ALK 124; GLOB 4.5; A/G 0.8. 12/07 15:03 Order name: Magnesium; Complete Time: 16:15 [facility] 12/07 15:03 Order name: NT PRO-BNP; Complete Time: 16:15 [facility] 12/07 15:03 Order name: PT-INR; Complete Time: 16:15 [facility] 12/07 15:03 Order name: Troponin (emerg Dept Use Only); Complete Time: 16:15 [facility] 12/07 17:41 Order name: Comprehensive Metabolic Panel [facility] 12/07 17:41 Order name: Comprehensive Metabolic Panel [facility] 12/07 17:41 Order name: Troponin I [facility] 12/07 17:41 Order name: Troponin I [facility] 12/07 17:41 Order name: Troponin I [facility] 12/07 17:43 Order name: CBC with Automated Diff [facility] 12/07 17:43 Order name: CBC with Automated Diff [facility]MT 12/07 15:03 Order name: XRAY Chest (1 view); Complete Time: 16:15 [facility] 12/07 15:03 Order name: EKG; Complete Time: 15:06 [facility] 12/07 15:03 Order name: Cardiac monitoring; Complete Time: 15:15 [facility] 12/07 15:03 Order name: EKG - Nurse/Tech; Complete Time: 15:15 [facility] 12/07 15:03 Order name: IV Saline Lock; Complete Time: 15:15 [facility] 12/07 15:03 Order name: Labs collected and sent; Complete Time: 15:15 [facility] 12/07 15:03 Order name: O2 Per Protocol; Complete Time: 15:15 [facility] 12/07 17:43 Order name: CONS Pharmacy Consult EDMT 12/07 17:43 Order name: CONS Physician Consult EDMT 12/07 17:43 Order name: Heart Healthy EDMT 12/07 15:03 Order name: O2 Sat Monitoring; Complete Time: 15:15 [facility] 12/07 15:20 Order name: Blood Pressure Recheck: bilateral upper extremity; Complete Time: 15:32 cp EC:10 Rate is 73 beats/min. Rhythm is regular. DC interval is normal. QRS interval is normal. cp QT interval is normal. Interpreted by me. Reviewed by me. 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 17:10 Follow up: Response: No adverse reaction jl7 15:40 Drug: NS 0.9% 1000 ml Route: IV; Rate: 100 ml/hr; Site: right antecubital; jl7 18:45 Follow up: IV Status: Infusion continued upon admission jl7 15:40 Drug: Zofran (Ondansetron) 4 mg Route: IVP; Site: right antecubital; jl7 17:10 Follow up: Response: No adverse reaction jl7 15:42 Drug: morphine 2 mg Route: IVP; Site: right antecubital; jl7 15:50 Follow up: Response: No adverse reaction; Pain is decreased jl7 16:25 Drug: ProTONIX 40 mg Route: IVP; Site: right antecubital; bp 17:10 Follow up: Response: No adverse reaction; No change in condition jl7 17:10 Drug: morphine 2 mg Route: IVP; Site: right antecubital; 7 17:31 Follow up: Response: No adverse reaction; No change in condition jl7 17:11 Drug: Nitroglycerin 0.4 mg Route: Sublingual; 7 17:31 Follow up: Response: No adverse reaction; No change in condition jl7 Disposition: 12/08 03:35 Co-signature as Attending Physician, Pedro Luis Olmos MD I agree with the assessment and kdr plan of care. Disposition: 12/08/19 17:09 Hospitalization ordered by Ute Koroma for Observation. Preliminary diagnosis is Chest pain, unspecified. - Bed requested for Telemetry/MedSurg (observation). - Status is Observation. wh - Condition is Stable. - Problem is new. - Symptoms have improved. Signatures: Dispatcher [employer] Zaira Calderon, RN RN Pedro Luis Briggs MD MD [facility] Dane Waldrop PA PA Ricardo Green RN RN [id number] Majo Villegas Sandor Lebron RN RN bp Corrections: (The following items were deleted from the chart) 12/07 18:26 17:09 Hospitalization Ordered by Ute Koroma MD for Observation. Preliminary dw diagnosis is Chest pain, unspecified. Bed requested for Telemetry/MedSurg (observation). Status is Observation. Condition is Stable. Problem is new. Symptoms have improved. cp 19:45 18:26 12/08/2019 17:09 Hospitalization Ordered by Ute Koroma MD for Observation. Preliminary diagnosis is Chest pain, unspecified. Bed requested for Telemetry/MedSurg (observation). Status is Observation. Condition is Stable. Problem is new. Symptoms have improved. dw
[2019-12-08] MEDS ORDERED: MORPHINE 2 MG/ML SYR ONE (17:16)
[2019-12-08] MEDS ORDERED: NITROGLYCERIN 0.4 MG/TAB SL ONE (17:20)
[2019-12-08] MEDS ORDERED: MORPHINE 2 MG/ML SYR IV PRN (17:36)
[2019-12-08] MEDS ORDERED: ONDANSETRON 4 MG/2 ML VIAL IV PRN (17:36)
[2019-12-08] MEDS ORDERED: ACETAMINOPHEN 500 MG TAB PO PRN (17:36)
[2019-12-08] MEDS: PANTOPRAZOLE 40MG TABLET PO SCH (17:39)
[2019-12-08] MEDS ORDERED: HYDRALAZINE HCL 20 MG/ML VIAL IV PRN (17:39)
[2019-12-08] MEDS ORDERED: ALBUTEROL 2.5 MG/3 ML NEB SOL NEB PRN (17:39)
[2019-12-08] MEDS ORDERED: LORAZEPAM 0.5 MG TABLET PO PRN (17:39)
--- NOTE | 2019-12-08 17:48 | P.HP ---
Certification for Inpatient Patient admitted to: Observation With expected LOS: <2 Midnights Patient will require the following post-hospital care: None Practitioner: I am a practitioner with admitting privileges, knowledge of patient current condition, hospital course, and medical plan of care. Services: Services provided to patient in accordance with Admission requirements found in Title 42 Section 412.3 of the Code of Federal Regulations Patient History Date of Service: 12/08/19 Reason for admission: Chest pain History of Present Illness: 49-year-old female with past medical history of current tobacco use, hyperlipidemia, history of Coronary artery disease status post AK in 2013 start, treated with stent to the LAD and as reported by patient, developed new onset left-sided chest pain which was more of like aching radiating to the left shoulder associated with tightness. She denies any wheezing she denies any similar pain. She states recent episode was preceded by a two-day history of nausea and her feeling of her bone. She states all of these were similar to her episode of AK 6 years ago. She states she was previously prescribed by aspirin and Plavix but she stopped taking Plavix choose to GI upset. She has not seen a freight hustler since then. She denies any recent travel. She denies any cough, shortness of breath. On arrival at the ED EKG was unremarkable with no ST segment changes. She was given IV morphine which reduced the pain from 8 to 4/10. pain is a bit persistent now. Review of record shows patient had stent placement to the RCA 6 years ago. Stress test done 2 years ago/2017 was unremarkable Allergies Penicillins Allergy (Verified 10/07/13 21:46) Hives/Rash Home Medications: Metoprolol Tartrate [Lopressor*] 25 mg PO BID #60 tab 10/09/13 Nitroglycerin [Nitrostat*] 0.4 mg SL UD PRN #1 tab 10/09/13 Simvastatin [Zocor*] 40 mg PO BEDTIME #30 tablet 10/09/13 Ticagrelor [Brilinta*] 90 mg PO BID #60 tablet 10/09/13 Aspirin 81 mg PO DAILY 11/20/13 - Past Medical/Surgical History Has patient received pneumonia vaccine in the past: No Diabetic: No -: HTN -: depression -: CAD -: hysterectomy -: tubal ligation -: left wrist sx with plates and screws - Social History Smoking Status: Light Tobacco smoker (1-9 cigarettes/day) Counseled patient to stop smoking for: more than 10 minutes Smoking therapy provided: Yes Alcohol use: Yes CD- Drugs: Yes Caffeine use: Yes Review of Systems 10-point ROS is otherwise unremarkable Physical Examination - Physical Exam General: Alert, In no apparent distress, Oriented x3, Obese HEENT: Atraumatic, Normocephalic, PERRLA Neck: Supple, 2+ carotid pulse no bruit, JVD not distended Respiratory: Clear to auscultation bilaterally, Normal air movement, Other (No reproducible chest wall tenderness) Cardiovascular: No edema, Normal pulses, Regular rate/rhythm, Normal S1 S2 Gastrointestinal: Normal bowel sounds, Soft and benign, Non-distended, No ascites, No tenderness, Other (No epigastric tenderness) Musculoskeletal: No clubbing, No swelling, No contractures Integumentary: No rashes, No breakdown Neurological: Normal gait, Normal speech, Normal strength at 5/5 x4 extr, Normal tone - Studies Laboratory Data (last 24 hrs) 12/08/19 15:08: PT 10.8, INR 0.91 12/08/19 15:08: WBC 8.7, Hgb 13.4, Hct 41.0, Plt Count 297 12/08/19 15:08: Sodium 139, Potassium 3.6, BUN 10, Creatinine 0.70, Glucose 95, Magnesium 2.3, Total Bilirubin 0.3, AST 15, ALT 21, Alkaline Phosphatase 124 H Imagings Data: Chest x-ray reviewed, clear lungs, no infiltrate. EKG revealed normal sinus rhythm at 74 beats per min. No ST segment changes, Assessment and Plan - Problems (Diagnosis) (1) Chest pain at rest Current Visit: Yes Status: Acute (2) Coronary artery disease Current Visit: Yes Status: Acute (3) Hyperlipidemia Current Visit: No Status: Acute - Advance Directives Does patient have a Living Will: No Does patient have a Durable POA for Healthcare: No Physician Review: Patient Assessed, Agree with Above Assessment and Plan Physician Review Additional Text: Left-sided chest pain-may be due to acute coronary syndrome given history of CAD in the past. Review of previous cardiac catheterization shows 30% LAD lesion in 2013 when RCA was stented Will obtain serial set of cardiac enzymes, initial set was negative Will consult Cardiology Will restart patient on aspirin and Plavix WILL DO nitroglycerin patch since persistent pain symptoms Need for tobacco cessation discussed Follow lipid profile Hypertension-not on any medication, do IV hydralazine p.r.n. Hyperlipidemia-follow lipid padded Tobacco use-smoking cessation advice, start nicotine patch Advanced directive-discussed patient wishes to be full code DVT prophylaxis-subcutaneous Lovenox
[2019-12-08] MEDS: CLOPIDOGREL 75 MG TABLET PO SCH (20:32)
[2019-12-08] MEDS: NITROGLYCERIN 0.2 MG/HR (5 MG) PATCH TD SCH (20:32)
[2019-12-08 20:48] VITALS: BMI 30.1
[2019-12-09 04:26] LABS: Absolute Lymphocytes (CBC) 2.4 K/uL (0.7-4.9); Basophils % 0.1 % (0-1.3); Hematocrit 35.1 % (36.0-45.0); MPV 9.6 fL (7.6-11.3); RBC Red Blood Cell Count 3.94 M/uL (3.86-4.86)
[2019-12-09 04:38] LABS: Albumin 2.9 g/dL (3.4-5.0); Bilirubin Total 0.3 mg/dL (0.2-1.0); Potassium 4.2 mmol/L (3.5-5.1); Protein, Total 6.5 g/dL (6.4-8.2)
--- NOTE | 2019-12-09 06:36 | EKG ---
Test Date: 2019-12-08 Test Time: 15:03:25 Director Of Purchasing: DANAE MEASUREMENT RESULTS: Intervals: Rate: 73 IN: 130 QRSD: 82 QT: 420 QTc: 462 [place]: P: 75 IN: 130 QRS: 82 T: 61 INTERPRETIVE STATEMENTS: Normal sinus rhythm Normal ECG Compared to ECG 10/15/2017 10:36:21 No significant changes Electronically Signed On 12-09-19 06:34:44 CDT by Mehrdad Ansari
[2019-12-09 08:42] VITALS: BP 131/68; TEMP 96.9
[2019-12-09] MEDS ORDERED: ENOXAPARIN 40 MG/0.4 ML SQ SCH (09:00)
[2019-12-09] MEDS: NITROGLYCERIN 0.2 MG/HR (5 MG) PATCH TD SCH (09:00)
[2019-12-09] MEDS ORDERED: ASPIRIN EC 81 MG TAB PO SCH (09:00)
[2019-12-09] MEDS ORDERED: NICOTINE 21 MG/PAT TD SCH (09:00)
[2019-12-09] MEDS: CLOPIDOGREL 75 MG TABLET PO SCH (09:30)
[2019-12-09] MEDS: PANTOPRAZOLE 40MG TABLET PO SCH (09:30)
[2019-12-09 09:45] VITALS: O2SAT 96
[2019-12-09] MEDS ORDERED: NITROGLYCERIN 0.2 MG/HR (5 MG) PATCH TD SCH (21:00)
--- NOTE | 2019-12-09 23:22 | DS ---
Date of Discharge: 12/09/2019 Consultants: Cardiology, Dr. Ansari. Discharge Diagnoses: 1.Chest pain. 2.Coronary artery disease, [place] artery, [place] heart, status post stent with angina. 3.Mixed hyperlipidemia. 4.Obesity, BMI 30. 5.Nicotine dependence with cigarette smoking. Hospital Course: Patient is a 49-year-old female with past medical history of hyperlipidemia, heart disease with stent in 2013, tobacco use comes in with left-sided chest pain. Patient was admitted to the hospital and worked up for ACS. Cardiac enzymes were negative. ACS was ruled out. Lipid panel showed elevated triglycerides at 152, HDL was 39. Patient was counseled regarding her smoking. EKG did not show any acute changes. Chest x-ray was clear. Patient was seen by Cardiology recommended outpatient workup with stress test and echocardiogram. Patient was chest pain free. She was then cl eared for discharge, she was sent home in a stable condition. Activity: As tolerated. Medications: As per medication reconciliation list. Followup: Follow up with primary care physician in 2-3 days. Follow up with box spring maker, Dr. Renato cox in 2 weeks. Return to ER for worsening condition. Diet: Heart healthy. Physical Examination: General: Awake, alert, oriented x3, obese female. CV: S1, S2. Respiratory: Moving air well bilaterally. Abdomen: Soft, nontender, nondistended. Positive bowel sounds. Extremities: No clubbing, cyanosis, or edema. Neurologic: Nonfocal. SA/MODL Voice ID: [id number] Report ID: [id number]
--- NOTE | 2019-12-10 00:52 | CON ---
Date of Consultation: 12/09/2019 The patient admitted to Dr. Koroma on 12/08/2019. I saw the patient on 12/09/2019. Reason For Consultation: Chest pain. History Of Present Illness: Ms. Mckinley is a 49-year-old woman. She had an angioplasty stent in 2013 , for LAD. She has dyslipidemia, positive tobacco use, came in with atypical chest pain, midepigastr ic, wakes her up at night, had been going on intermittently for about 2 weeks, not associated with ex ertion. The pain does not radiate to the jaw or the arms. Denied nausea, vomiting, diaphoresis, PND , orthopnea, pedal edema, palpitations, or syncope. Workup so far includes a normal EKG, normal trop onin, normal chest x-ray. She is asymptomatic. Past Medical History: As stated above. Allergies: PENICILLIN. Review of Systems: Negative. Social History: Positive for tobacco. Family History: Positive for heart disease. Medications: At home, include aspirin, Brilinta, Zocor, and metoprolol, but she is only taking aspir in now. Physical Examination: Vital Signs: Stable. She was afebrile. HEENT: Negative. Neck: Supple without any lymphadenopathy, JVD, thyromegaly, or bruit. Chest: Clear. Cardiac: Revealed a regular rhythm and rate. No murmurs, gallops, or rubs. Abdomen: Benign. Extremities: Revealed no clubbing, cyanosis, or edema. Diagnostic Data: All normal. Impression And Plan: Atypical chest pain in a patient with history of coronary artery disease, statu s post stent. Last stress test was 2 years ago. Has multiple risk factors including dyslipidemia, t obacco use, and family history. I think her symptoms are atypical and certainly could be related to coronary artery disease, although gastroesophageal reflux disease may be more likely. Nevertheless, an echocardiogram, which was ordered has been done and that is perfectly normal. I am comfortable wi th Ms. Mckinley going home. I think we can do an outpatient stress test on her in the office, preferab ly a Cardiolite and I will see her in the office soon. Continue her present regimen. I prefer she g ets back on her aspirin, Zocor, and beta-skinny. BONI/LEILANI Voice ID: [id number] Report ID: [id number]
--- NOTE | 2019-12-10 11:52 | ECHO ---
HEIGHT: 5 ft 6 in WEIGHT: 186 lb 12.8 oz DATE OF STUDY: 12/09/[address]: Mehrdad Ansari MD 2-DIMENSIONAL: YES M.MODE: YES DOPPLER: YES COLOR FLOW: YES TDS: NO PORTABLE: NO DEFINITY: NO BUBBLE STUDY: NO DIAGNOSIS: CHEST PAIN CARDIAC HISTORY: CATHERIZATION: YES SURGERY: NO PROSTHETIC VALVE: NO PACEMAKER: NO MEASUREMENTS (cm) DIASTOLIC (NORMALS) SYSTOLIC (NORMALS) IVSd 0.8 (0.6-1.2) LA Diam (1.9-4.0) LVEF 65% LVIDd 4.8 (3.5-5.7) LVIDs 3.1 (2.0-3.5) %FS 35% LVPWd 0.9 (0.6-1.2) Ao Diam 2.9 (2.0-3.7) 2 DIMENSIONAL ASSESSMENT: RIGHT ATRIUM: NORMAL LEFT ATRIUM: NORMAL RIGHT VENTRICLE: NORMAL LEFT VENTRICLE: NORMAL TRICUSPID VALVE: NORMAL MITRAL VALVE: NORMAL PULMONIC VALVE: NORMAL AORTIC VALVE: NORMAL PERICARDIAL EFFUSION: NONE AORTIC ROOT: NORMAL LEFT VENTRICULAR WALL MOTION: NORMAL. DOPPLER/COLOR FLOW: NORMAL. COMMENTS: NORMAL 2D ECHO WITH DOPPLER. NO WALL MOTION ABNORMALITY. NO EFFUSION. TECHNOLOGIST: CHUCHO KWOK
== END 2019-12-09 10:06 | disposition home or self-care (01) ==
LOC: ER 14:49 → ERHOLD 17:37 → 2ND 19:35
PROVIDERS: ADMIT Internal Medicine; ATTEND Internal Medicine
DX: R07.89 Other chest pain (principal); I25.10 Atherosclerotic heart disease of native coronary artery without angina pectoris; I10 Essential (primary) hypertension; E78.2 Mixed hyperlipidemia; Z95.5 Presence of coronary angioplasty implant and graft; E66.9 Obesity, unspecified; Z68.30 Body mass index [BMI] 30.0-30.9, adult; Z11.59 Encounter for screening for other viral diseases; I25.2 Old myocardial infarction; F17.210 Nicotine dependence, cigarettes, uncomplicated; Z79.82 Long term (current) use of aspirin; Z82.49 Family history of ischemic heart disease and other diseases of the circulatory system
CPT/HCPCS: 96361; 93005; 93306; 85025 ×2; 80048; 36415; 83735; 85610; 80061; 80076; 84484 ×3; 80053; 83880; 71045; 94640; 96375; 96374; 99285; U0002; C9113; J1650; J2270; G0378 ×3

== ENCOUNTER 2021-12-05 07:47 | Observation (INO) | payer OTHER ==
--- OUTSIDE RECORDS SUMMARY | 2021-12-05 07:50 | XMS REPORT | Continuity of Care Document ---
:1970 Author Organization [facility] t Address [address] [place] [address] Care Team Providers Name Role Phone KOTHARI, E Primary Care Physician Unavailable Pratik STEWART Attending Clinician Unavailable Renato BANKS Attending Clinician Unavailable Darren ROWLAND S Attending Clinician ABDIRAHMAN Attending Clinician Unavailable Pratik STEWART Admitting Clinician Unavailable Renato BANKS Admitting Clinician Unavailable ABDIRAHMAN Admitting Clinician Unavailable Payers Payer Name Policy Type Policy Number Effective Date Expiration Date S K[place]una [id number] 2017 NON-CONTRACT 00:00:00 GENERIC Problems Condition Condition Condition Status Onset Resolution Last Treating Co mments Source Name Details Category Date Date Treatment Clinician Date Chest pain Chest pain Disease Active 2015-07 U nivers 0-05 ity of 00:00: [address] Allergies, Adverse Reactions, Alerts Allergy Allergy Status Severity Reaction(s) Onset Inactive Treating Comm ents Source Name Type Date Date Clinician PENICILL Drug Active Rash 2015-07 Univers INS Class 0-05 ity of 00:00: [address] Penicill Propensi Active Rash 2015-07 Univer s ins ty to 0-05 ity of adverse 00:00: [place] reaction [address] [place] [address] s [place] Social History Social Habit Start Date Stop Date Quantity Comments Source Exposure to Unable to assess Univers ity of SARS-CoV-2 [facility] [place] Tobacco Comment 2020-11-30 2020-11-30 1 ppd Universit y of 00:00:00 00:00:[address] [facility] Sex Assigned At [birth year] Universit y of 00:00:00 00:00:00 [facility] Smoking Status Start Date Stop Date Source Current every day smoker [facility] Medications Ordered Filled Start Stop Current Ordering Indication Dosage Frequency Signature Comments Components Source Medication Medication Date Date Medication? Clinician (SIG) Name Name aspirin 325mg 325 mg, Unive rs tablet 325 08-31 Oral, ity of mg 02:00: 01:04 ONCE, 1 [place] 00 :00 dose, On Medical 08/30/21 Branch at 2000, STAT BABY Yes 81mg Take 81 mg Univers ASPIRIN 12-01 by mouth ity of ORAL 12:16: daily. [address] metoprolol Yes Take by Uni vers succinate 12-01 mouth. ity of 50 mg CSpX 12:16: [address] Immunizations Ordered Filled Immunization Date Status Comments [facility] tolu Immunization Name Name Pneumococcal 2016-04-06 Completed [place] [facility] Polysaccharide, 00:00:00 [facility] ical PPSV23 (PNEUMOVAX) [place] Influenza Virus 2016-04-06 Completed [facility] of Vaccine Quad IM 3 00:00:00 [facility] Vital Signs Vital Name Observation Time Observation Value Comments Source Systolic blood 2021-08-31 00:18:00 181 mm[Hg] [facility] sity pressure [facility] Diastolic blood 2021-08-31 00:18:00 78 mm[Hg] [facility] Heart rate 2021-08-31 00:18:00 75 /min [facility] Body temperature 2021-08-31 00:18:00 36.11 [place] [facility] Respiratory rate 2021-08-31 00:18:00 18 /min [facility] Body weight 2021-08-31 00:18:00 83.915 kg [facility] BMI 2021-08-31 00:18:00 29.04 kg/m2 [facility] Oxygen saturation in 2021-08-31 00:18:00 99 /min [facility] Arterial blood by [facility] Pulse oximetry Branch Procedures Procedure Date / Time Performed Performing Clinician Ally motley XR CHEST 1 VW 2021-08-31 01:25:34 Marisol Banks [place] [facility] f [facility] TROPONIN I 2021-08-31 01:10:00 Marisol Banks [facility] COMP. METABOLIC PANEL 2021-08-31 01:10:00 Marisol Banks [facility] ([id number]) [facility] CBC WITH DIFF 2021-08-31 01:10:00 Marisol Banks [facility] N-TERMINAL PRO-BNP 2021-08-31 01:10:00 Marisol Banks [facility] NOTICE OF PRIVACY 2021-08-31 00:12:09 [facility] Name [facility] CONSENT/REFUSAL FOR 2021-08-31 00:11:56 Doctor Unassigned, No [facility] DIAGNOSIS AND Name [facility] TREATMENT Encounters Start End Encounter Admission Attending Care Care Encounter Source Date/Time Date/Time Type Type Clinicians Facility Department ID 2021-05-01 Outpatient R MARCUSJAMESASHIA [facility] ROBERTA [id number] Univers 22:29:[address] [facility] 2021-08-30 2021-08-30 [facility] [id number] Univers 18:19:00 20:34:[address] [facility] 2021-08-30 2021-08-30 [facility] [id number] Univers 18:19:00 20:34:00 Marisol Gross VIRGIL [id number] i [facility] [id number] [facility] [id number] [place] [id number] [place] 2019-12-10 2019-12-11 [facility]patient [facility] [id number] [place] 00:00:00 00:00:00 CHRISTINE [address] Results Test Description Test Time Test Comments Results Result Comments Source TROPONIN I 2021-08-31 01:47:57 Test Item Value Reference Range Interpretation Comme nts TROPONIN I (test code = <0.012 See_Comment [Au tomated message] The [id number]) system which ge nerated this result tra nsmitted reference range : <=0.034 ng/mL. The refe rence range was not u sed to interpret this result as normal/abnormal . DONOVAN (test code = DONOVAN) Reference (Normal) Range (defined by the 99th percentile reference limit): <= 0.034 ng/mL Note: Cardiac troponin begins to rise 3-4 hours after the onset of ischemia. Repeat in 4-6 hours if the sample was drawn within 3-4 hours of the onset of the symptom and found normal. Diagnosis of myocardial injury is made with acute changes in cTn concentrations with at least one serial sample above the 99th percentile upper reference limit (URL), taken together with the patient's clinical presentation. Biotin has been reported to cause a negative bias, interpret results relative to patient's use of biotin. Lab Interpretation Normal (test code = 15103-5) [id number] 01:44:59 Test Item Value Reference Range Interpretation Comments NT-proBNP (test code 90 pg/mL See_Comment [Autom ated = [id number]) message] The system which generated this result transmitted reference range : <=125. The reference range was not used to interpret this result as normal/abnormal . DONOVAN (test code = DONOVAN) Biotin has been reported to cause a negative bias, interpret results relative to patient's use of biotin. Lab Interpretation Normal (test code = 66938-2) [facility] ([id number])2021-08-31 01:36:14 Test Item Value Reference Range Interpretation Comments NA (test code = 138 mmol/L 135-145 3824700156) K (test code = 4.6 mmol/L 3.5-5.0 9858309613) CL (test code = 104 mmol/L 98-108 2832683236) CO2 TOTAL (test code = 28 mmol/L 23-31 7339376305) AGAP (test code = 2-16 3337552390) BUN (test code = 7 mg/dL 7-23 9326783518) GLUCOSE (test code = 122 mg/dL 70-110 H 7348438377) CREATININE (test code = 0.56 mg/dL 0.50-1.04 8544378330) TOTAL BILI (test code = 0.5 mg/dL 0.1-1.2 7341274697) CALCIUM (test code = 9.0 mg/dL 8.6-10.6 6586473630) T PROTEIN (test code = 7.3 g/dL 6.3-8.2 0821653490) ALBUMIN (test code = 4.2 g/dL 3.5-5.0 5251182226) ALK PHOS (test code = 106 U/L 34-122 8532581903) ALTv (test code = 15 U/L 5-35 1742-6) AST(SGOT) (test code = 18 U/L 13-40 8342270987) eGFR (test code = mL/min/1.73m2 0293163092) DONOVAN (test code = DONOVAN) Association of Glomerular Filtration Rate (GFR) and Staging of Kidney Disease* + --+ --+ ------+| GFR (mL/min/1.73 m2) ?| With Kidney Damage ?| ?Without Kidney Damage+ --------+ --------+ +| ?>90 ?| ?Stage one ?| ? Normal ?+ ---+ ---+ -------+| ?60-89 ?| ?Stage two ?| ? Decreased GFR ? + --+ --+ ------+| ?30-59 ?| ?Stage three ?| ? Stage three ? + --+ --+ ------+| ?15-29 ?| ?Stage four ? | ? Stage four ?+ ---+ ---+ -------+| ?<15 (or dialysis) ? ?| ?Stage five ? | ? Stage five ?+ ---+ ---+ -------+ *Each stage assumes the associated GFR level has been in effect for at least three months. ?Stages 1 to 5, with or without kidney disease, indicate chronic kidney disease. Notes: Determination of stages one and two (with eGFR >59mL/min/1.73 m2) requires estimation of kidney damage for at least three months as defined by structural or functional abnormalities of the kidney, manifested by either:Pathological abnormalities or Markers of kidney damage (including abnormalities in the composition of the blood or urine or abnormalities in imaging tests). Lab Interpretation Abnormal (test code = 15638-9) [facility] WITH [id number] 01:24:33 Test Item Value Reference Range Interpretation Comments WBC (test code = See_Comment [Automated message] 6690-2) The system [employer] generated this result transmitted ref erence range: 4.30 - 1 1.10 10*3/?L. The re ference range was not u sed to interpret this result as normal/abnor mal. RBC (test code = See_Comment [Automated message] 789-8) The system [employer] generated this result transmitted ref erence range: 3.93 - 5 .25 10*6/?L. The re ference range was not u sed to interpret this result as normal/abnor mal. HGB (test code = 12.9 g/dL 11.6-15.0 718-7) HCT (test code = 39.4 % 35.7-45.2 4544-3) MCV (test code = 91.2 fL 80.6-95.5 787-2) MCH (test code = 29.9 pg 25.9-32.8 785-6) MCHC (test code = 32.7 g/dL 31.6-35.1 786-4) RDW-SD (test code 40.5 fL 39.0-49.9 = 22036-2) RDW-CV (test code 12.0 % 12.0-15.5 = 788-0) PLT (test code = See_Comment [Automated message] 777-3) The system [employer] generated this result transmitted ref erence range: 166 - 35 8 10*3/?L. The re ference range was not u sed to interpret this result as normal/abnor mal. MPV (test code = 10.5 fL 9.5-12.9 03350-6) NRBC/100 WBC (test See_Comment [Automat ed message] code = 7725906373) The [employer] which generated this result transmitted ref erence range: 0.0 - 10 .0 /100 WBCs. The refer ence range was not u sed to interpret this result as normal/abnor mal. NRBC x10^3 (test <0.01 See_Comment [Automated message] code = 0627092301) The syste m which generated this result transmitted ref erence range: 10*3/?L. The reference range was not used to interpr et this result as normal/abnormal . GRAN MAT (NEUT) % 48.6 % (test code = 770-8) IMM GRAN % (test 0.30 % code = 9871164401) LYMPH % (test code 41.4 % = 736-9) MONO % (test code 7.3 % = 5905-5) EOS % (test code = 2.3 % 713-8) BASO % (test code 0.1 % = 706-2) GRAN MAT 3.82 10*3/uL 1.88-7.09 x10^3(ANC) (test code = 1752318780) IMM GRAN x10^3 <0.03 0.00-0.06 (test code = 9729231812) LYMPH x10^3 (test 3.25 10*3/uL 1.32-3.29 code = 731-0) MONO x10^3 (test 0.57 10*3/uL 0.33-0.92 code = 742-7) EOS x10^3 (test 0.18 10*3/uL 0.03-0.39 code = 711-2) BASO x10^3 (test <0.03 0.01-0.07 code = 704-7) [facility]"
[2021-12-05 08:06] LABS: Absolute Lymphocytes (CBC) 2.5 K/uL (0.7-4.9); Hematocrit 35.5 % (36.0-45.0); Lymphocytes % 33.6 % (15.3-44.8); MPV 8.4 fL (7.6-11.3); RBC Red Blood Cell Count 4.01 M/uL (3.86-4.86)
[2021-12-05] MEDS ORDERED: NITROGLYCERIN 0.4 MG/TAB SL ONE (08:23)
--- NOTE | 2021-12-05 08:30 | RAD REPORT ---
EXAM DESCRIPTION: RAD - Chest Single View - 12/05/2021 8:25 am CLINICAL HISTORY: CHEST PAIN Chest pain. COMPARISON: Chest Single View dated 12/08/2019; Chest Pa And Lat (2 Views) dated 04/12/2018; Chest Sin gle View dated 10/15/2017; CHEST SINGLE VIEW dated 10/05/2014 FINDINGS: Portable technique limits examination quality. The lungs are grossly clear. The heart is normal in size. No displaced fractures. IMPRESSION: No acute intrathoracic process suspected.
[2021-12-05 08:36] LABS: Troponin High Sensitivity 15.2 pg/mL (<58.9)
--- NOTE | 2021-12-05 08:40 | ER ---
[facility] Name: Greta Mckinley Age: 51 yrs Sex: Female : 1970 Arrival Date: 12/05/2021 Time: 07:54 Bed 4 Private MD: Diagnosis: Chest pain, unspecified Presentation: 12/05 08:01 Chief complaint: Patient states: at approx 0700 this morning she started experiencing a ap3 mid sternal pain that radiated throughout her chest and into her jaw. patient reports she took a nitro which helped the pain. Coronavirus screen: Client presents with at least one sign or symptom that may indicate coronavirus-19. Ebola Screen: No symptoms or risks identified at this time. Initial Sepsis Screen: Does the patient meet any 2 criteria? No. Patient's initial sepsis screen is negative. Does the patient have a suspected source of infection? No. Patient's initial sepsis screen is negative. Risk Assessment: Do you want to hurt yourself or someone else? Patient reports no desire to harm self or others. Onset of symptoms was December 05, 2021 at 07:00. Care prior to arrival: Medication(s) given: ASA, 325 mg, nitro X's 2. 08:01 Method Of Arrival: EMS: [facility] ap3 08:01 Acuity: ZEYAD 3 ap3 Triage Assessment: 08:04 General: Appears in no apparent distress. Behavior is calm, cooperative, appropriate ap3 for age. Pain: Complains of pain in mid-sternal area Pain radiates to chest Quality of pain is described as burning, Pain began suddenly, 1 hour ago. Neuro: Level of Consciousness is awake, alert, obeys commands, Oriented to person, place, time, situation, Appropriate for age Speech is normal, Facial symmetry appears normal. Cardiovascular: Reports chest pain, diaphoresis, Patient's skin is warm and dry. Respiratory: Airway is patent Respiratory effort is even, unlabored, Respiratory pattern is regular, symmetrical. 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 - Family history:: not pertinent. - Hospitalizations: : No recent hospitalization is reported. Screenin:04 Abuse screen: Denies threats or abuse. Nutritional screening: No deficits noted. ap3 Tuberculosis screening: No symptoms or risk factors identified. Fall Risk None identified. Assessment: 08:15 Reassessment: patient reports return of chest pain. new orders received. ap3 08:40 Reassessment: patient reports return of chest pain. new orders received. ap3 10:56 Reassessment: Patient and/or family updated on plan of care and expected duration. Pain ap3 level reassessed. Patient is alert, oriented x 3, equal unlabored respirations, skin warm/dry/pink. Vital Signs: 08:01 BP 109 / 68; Pulse 62; Resp 17; Temp 98.8; Pulse Ox 99% ; Weight 83.91 kg; Height 5 ft. ap3 6 in. (167.64 cm); 08:33 BP 155 / 89; Pulse 61; Pulse Ox 97% on R/A; ap3 08:58 BP 155 / 82; Pulse 52; ap3 10:00 BP 147 / 72; Pulse 47; Pulse Ox 97% on R/A; ap3 10:56 BP 116 / 59; Pulse 50; Pulse Ox 99% on R/A; ap3 12:03 BP 115 / 62; Pulse 52; ap3 08:01 Body Mass Index 29.86 (83.91 kg, 167.64 cm) ap3 ED Course: 07:54 Patient arrived in ED. rn 07:54 Antonio Guzmán MD is Attending Physician. rn 07:56 EKG done, by ED staff, reviewed by Antonio Guzmán MD. em1 08:01 Karen Rodriguez, VISH is Primary Nurse. ap3 08:01 Inserted saline lock: 20 gauge in left antecubital area, using aseptic technique. Blood ap3 collected. 08:03 Triage completed. ap3 08:05 Arm band placed on left wrist. ap3 08:06 Patient has correct armband on for positive identification. Placed in gown. Bed in low ap3 position. Call light in reach. Side rails up X2. monitor technician on. Pulse ox on. NIBP on. Door closed. Noise minimized. Warm blanket given. 08:26 XRAY Chest (1 view) In Process Unspecified. EDMS 08:38 Tavon Barrera MD is Hospitalizing Provider. rn 08:41 Ross Matthews is Hospitalizing Provider. rn 08:42 COVID swab sent to lab. ap3 08:57 Admitting physician to see patient. ap3 11:01 No provider procedures requiring assistance completed. Patient admitted, IV remains in ap3 place. 19:25 Primary Nurse role handed off by Karen Rodriguez, RN mw2 Administered Medications: 08:07 Not Given (rcv'd with EMS): Aspirin Chewable Tablet 324 mg PO once; 81 mg tablets x 4 ap3 08:19 Drug: Nitroglycerin 0.4 mg Route: Sublingual; ap3 08:56 Follow up: Response: No adverse reaction ap3 08:52 Drug: Nitroglycerin 0.4 mg Route: Sublingual; ap3 09:44 Follow up: Response: No adverse reaction ap3 09:43 Drug: Zofran (Ondansetron) 4 mg Route: IVP; Site: left antecubital; ap3 10:57 Follow up: Response: No adverse reaction ap3 09:44 Drug: morphine 4 mg Route: IVP; Infused Over: 4 mins; Site: left antecubital; ap3 10:57 Follow up: Response: No adverse reaction ap3 Medication: 08:06 VIS not applicable for this client. ap3 Outcome: 08:39 Decision to Hospitalize by Provider. rn 11:01 Admitted to ER Hold. Please see [facility] for further documentation. ap3 11:01 Condition: good 11:01 Discharge instructions given to patient, family, Instructed on the need for admit. 20:26 Patient left the ED. as6 Signatures: Dispatcher [employer] EDMS Antonio Guzmán MD MD rn Martinez, Eric em1 Karen Rodriguez RN RN ap3 Kia Robin mw2 Remington Howard RN RN as6
--- NOTE | 2021-12-05 08:40 | EDPHYS ---
Physician Documentation [facility] Name: Greta Mckinley Age: 51 yrs Sex: Female : 1970 Arrival Date: 12/05/2021 Time: 07:54 Bed 4 Private MD: ED Physician Antonio Guzmán HPI: 12/05 08:20 This 51 yrs old Female presents to ER via EMS with complaints of chest pain. rn 08:20 The patient or guardian reports chest pain that is located primarily in the substernal rn area. Onset: just prior to arrival. The pain radiates to Associated signs and symptoms: Pertinent positives: diaphoresis, Pertinent negatives: abdominal pain, shortness of breath, syncope, vomiting. The chest pain is described as a heaviness. Duration: The patient or guardian reports a single episode, that is now resolved. Modifying factors: The symptoms are alleviated by NTG, X1. the symptoms are aggravated by nothing. Severity of pain: At its worst the pain was moderate in the emergency department the pain has resolved. The patient has experienced a previous episode. The patient has not recently seen a physician. Pt reports chest pain, substernal, radiates to jaw and neck, relieved by nitro x 1, + feels identical to previous [place], last cath 2013. . 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 - Family history:: not pertinent. - Hospitalizations: : No recent hospitalization is reported. ROS: 08:20 Constitutional: Negative for fever, chills, and weight loss, Eyes: Negative for injury, rn pain, redness, and discharge, Neck: Negative for injury, pain, and swelling, Cardiovascular: + chest pain Respiratory: Negative for shortness of breath, cough, wheezing, and pleuritic chest pain, Abdomen/GI: Negative for abdominal pain, nausea, vomiting, diarrhea, and constipation, MS/Extremity: Negative for injury and deformity, Skin: Negative for injury, rash, and discoloration, Neuro: Negative for headache, weakness, numbness, tingling, and seizure. Exam: 08:20 Constitutional: This is a well developed, well nourished patient who is awake, alert, rn and in no acute distress. Head/Face: Normocephalic, atraumatic. Eyes: Periorbital areas with no swelling, redness, or edema. Cardiovascular: Regular rate and rhythm. No pulse deficits. Respiratory: No increased work of breathing, no retractions or nasal flaring. Abdomen/GI: Soft, non-tender Skin: Warm, dry MS/ Extremity: Pulses equal, no cyanosis. Neuro: Awake and alert, GCS 15 Vital Signs: 08:01 BP 109 / 68; Pulse 62; Resp 17; Temp 98.8; Pulse Ox 99% ; Weight 83.91 kg; Height 5 ft. ap3 6 in. (167.64 cm); 08:33 BP 155 / 89; Pulse 61; Pulse Ox 97% on R/A; ap3 08:58 BP 155 / 82; Pulse 52; ap3 10:00 BP 147 / 72; Pulse 47; Pulse Ox 97% on R/A; ap3 10:56 BP 116 / 59; Pulse 50; Pulse Ox 99% on R/A; ap3 12:03 BP 115 / 62; Pulse 52; ap3 08:01 Body Mass Index 29.86 (83.91 kg, 167.64 cm) ap3 MDM: 07:54 Patient medically screened. rn 08:37 Differential diagnosis: acute myocardial infarction, anxiety, coronary artery disease rn chest wall pain, gastroesophageal reflux disease (GERD), pleurisy, pneumonia, pneumothorax, stable angina, unstable angina. HEART Score: History: Highly Suspicious (2), ECG: Normal (0), Age: > 45 and < 65 years (1), Risk Factors: > or = 3 Risk factors for atherosclerotic disease (2), Troponin: < or = 1 x Normal Limit (0), Total Score = 5. The patient was given aspirin in the Emergency Department. Data reviewed: vital signs, nurses notes, lab test result(s), EKG, radiologic studies, plain films, and as a result, I will admit patient. Counseling: I had a detailed discussion with the patient and/or guardian regarding: the historical points, exam findings, and any diagnostic results supporting the discharge/admit diagnosis, lab results, radiology results, the need for further work-up and treatment in the hospital. Response to treatment: the patient's symptoms have markedly improved after treatment, and as a result, I will admit patient. Admission orders: after a detailed discussion of the patient's condition and case, the admit orders are written by me. 08:51 ED course: Chest pain returned while here, nitro helped. . rn 12/05 07:55 Order name: Basic Metabolic Panel; Complete Time: 08:37 rn 12/05 07:55 Order name: CBC with Diff; Complete Time: 08:37 rn 12/05 07:55 Order name: NT PRO-BNP; Complete Time: 08:37 rn 12/05 07:55 Order name: Troponin HS; Complete Time: 08:37 rn 12/05 08:57 Order name: SARS-COV-2 RT PCR; Complete Time: 10:08 EDMS 12/05 07:55 Order name: XRAY Chest (1 view); Complete Time: 08:37 rn 12/05 11:46 Order name: PTT, Activated Partial Thromb; Complete Time: 17:35 EDMS 06 11:54 Order name: Troponin High Sensitivity; Complete Time: 17:35 EDMS 06/06 12:10 Order name: Lipid Profile; Complete Time: 17:35 EDMS 06 16:50 Order name: Troponin High Sensitivity; Complete Time: 17:35 EDMS 06/06 16:53 Order name: PTT, Activated Partial Thromb; Complete Time: 17:35 EDMS 06 07:55 Order name: EKG; Complete Time: 07:55 rn 12/05 07:55 Order name: Cardiac monitoring; Complete Time: 08:07 rn 12/05 07:55 Order name: EKG - Nurse/Tech; Complete Time: 07:56 rn 12/05 07:55 Order name: IV Saline Lock; Complete Time: 08:07 rn 12/05 07:55 Order name: Labs collected and sent; Complete Time: 08:07 rn 12/05 07:55 Order name: O2 Per Protocol; Complete Time: 08:07 rn 12/05 07:55 Order name: O2 Sat Monitoring; Complete Time: 08:07 rn Administered Medications: 08:07 Not Given (rcv'd with EMS): Aspirin Chewable Tablet 324 mg PO once; 81 mg tablets x 4 ap3 08:19 Drug: Nitroglycerin 0.4 mg Route: Sublingual; ap3 08:56 Follow up: Response: No adverse reaction ap3 08:52 Drug: Nitroglycerin 0.4 mg Route: Sublingual; ap3 09:44 Follow up: Response: No adverse reaction ap3 09:43 Drug: Zofran (Ondansetron) 4 mg Route: IVP; Site: left antecubital; ap3 10:57 Follow up: Response: No adverse reaction ap3 09:44 Drug: morphine 4 mg Route: IVP; Infused Over: 4 mins; Site: left antecubital; ap3 10:57 Follow up: Response: No adverse reaction ap3 Disposition Summary: 12/05/21 08:39 Hospitalization Ordered Hospitalization Status: Observation rn Location: Telemetry/MedSurg (observation) rn Condition: Stable rn Problem: new rn Symptoms: have improved rn Bed/Room Type: Standard rn Provider: Ross Matthews(12/05/21 08:41) rn Room Assignment: [facility](12/05/21 18:38) Diagnosis - Chest pain, unspecified rn Forms: - Medication Reconciliation Form rn - SBAR form rn Signatures: Dispatcher [employer] EDNimo Stuart Roman, MD MD rn Prokisch, Amanda, RN RN ap3 Corrections: (The following items were deleted from the chart) 08:41 08:39 Tavon Barrera rn rn 08:57 08:10 COVID 19 CPL+MR.LAB.BRZ ordered. EDVA EDVA 18:38 08:39 arun woodruff
[2021-12-05] MEDS ORDERED: MORPHINE 4 MG/ML SYR ONE (08:56)
[2021-12-05] MEDS ORDERED: ONDANSETRON 4 MG/2 ML VIAL ONE (09:12)
[2021-12-05] MEDS ORDERED: HEPARIN/D5W 25,000 UNIT/500 ML BAG IV SCH (11:05)
[2021-12-05] MEDS ORDERED: ACETAMINOPHEN 500 MG TAB PO PRN (11:05)
[2021-12-05] MEDS ORDERED: MORPHINE 4 MG/ML SYR IV PRN (11:05)
[2021-12-05] MEDS ORDERED: NITROGLYCERIN 0.4 MG/TAB SL PRN (11:05)
[2021-12-05] MEDS ORDERED: HEPARIN/D5W 25,000 UNIT/500 ML BAG IV ONE (12:23)
[2021-12-05] MEDS ORDERED: HEPARIN 5000 UNIT/ML 1 ML VIAL ONE (12:23)
--- NOTE | 2021-12-05 12:53 | P.HP ---
Certification for Inpatient Patient admitted to: Observation With expected LOS: <2 Midnights Practitioner: I am a practitioner with admitting privileges, knowledge of patient current condition, hospital course, and medical plan of care. Services: Services provided to patient in accordance with Admission requirements found in Title 42 Section 412.3 of the Code of Federal Regulations Patient History Date of Service: 12/05/21 Reason for admission: Chest pain History of Present Illness: 51-year-old woman with a prior history of coronary artery disease status postcardiac stenting 2013 presented to the emergency department with a complaint of sudden onset chest pain. Patient reports retrosternal chest pain that radiates across his chest to the left arm and left jaw. Chest pain relieved by nitroglycerin. Patient received about 7 doses of nitroglycerin before she was seen in the ED. Chest pain appears to be intermittent, she denies shortness of breath, she denies abdominal pain, she denies coughing. She stated she had a stress test and echocardiogram in 2019 which were unremarkable. Initial troponin is negative. EKG demonstrated sinus bradycardia, no ST-T changes. Patient diagnosed with unstable angina and hospitalized for further management. Allergies Penicillins Allergy (Verified 10/07/13 21:46) Hives/Rash Home Medications: Aspirin 81 mg PO DAILY 11/20/13 - Past Medical/Surgical History Has patient received pneumonia vaccine in the past: No Diabetic: No -: HTN -: depression -: CAD -: SD (2013) -: hysterectomy -: tubal ligation -: left wrist sx with plates and screws - Family History Mother -: Heart disease, Cancer Notes: breast/lung CA - Social History Smoking Status: Current every day smoker Alcohol use: Yes CD- Drugs: Yes Caffeine use: Yes Place of Residence: Home Review of Systems Other: She denied any fever, no nausea or vomiting. Except as documented, all other systems reviewed and negative. Physical Examination - Vital Signs Temperature: 98.8 F Blood Pressure: 115/62 Pulse: 47 Respirations: 17 Pulse Ox (%): 96 - Physical Exam General: Alert, In no apparent distress HEENT: Atraumatic, Normocephalic, PERRLA, Mucous membr. moist/pink, EOMI, Sclerae nonicteric Neck: Supple, JVD not distended Respiratory: Clear to auscultation bilaterally, Normal air movement Cardiovascular: No edema, Regular rate/rhythm, Normal S1 S2, No murmurs Capillary refill: <2 Seconds Gastrointestinal: Normal bowel sounds, Soft and benign, Non-distended, No tenderness Musculoskeletal: No swelling Integumentary: No rashes, No erythema Neurological: Normal strength at 5/5 x4 extr, Cranial nerves 3-12 intact Lymphatics: No axilla or inguinal lymphadenopathy - Studies Laboratory Data (last 24 hrs) 12/05/21 07:59: WBC 7.5, Hgb 12.1, Hct 35.5 L, Plt Count 359 12/05/21 07:59: Sodium 137, Potassium 4.0, BUN 10, Creatinine 0.75, Glucose 123 H Assessment and Plan - Problems (Diagnosis) (1) Unstable angina Current Visit: Yes Status: Acute (2) History of SD (myocardial infarction) Current Visit: Yes Status: Acute (3) Hypertension Current Visit: Yes Status: Acute (4) Coronary artery disease Current Visit: No Status: Acute (5) Hyperlipidemia Current Visit: No Status: Acute - Plan Placed under observation. Continue to trend troponin. Start metoprolol, Aspirin, Lipitor. Heparin drip. Obtain echocardiogram Cardiology consult. NTG and morphine as needed for chest pain. Check lipid profile. - Advance Directives Does patient have a Living Will: No Does patient have a Durable POA for Healthcare: No
--- NOTE | 2021-12-05 13:19 | EKG ---
Test Date: 2021-12-05 Test Time: 07:50:39 Respite Provider: KATLYN MEASUREMENT RESULTS: Intervals: Rate: 62 IL: 136 QRSD: 78 QT: 434 QTc: 440 [place]: P: 15 IL: 136 QRS: 80 T: 40 INTERPRETIVE STATEMENTS: Normal sinus rhythm Normal ECG Compared to ECG 12/08/2019 15:03:25 No significant changes Electronically Signed On 12-05-21 13:18:12 CDT by Jonathan Thomas
--- NOTE | 2021-12-05 14:53 | ECHO ---
HEIGHT: 5 ft 6 in WEIGHT: 184 lb 15.838 oz DATE OF STUDY: 12/05/[address]: rossi valdez 2-DIMENSIONAL: YES M.MODE: YES DOPPLER: YES COLOR FLOW: YES TDS: NO PORTABLE: YES DEFINITY: NO BUBBLE STUDY: NO DIAGNOSIS: UNSTABLE ANGINA, CHEST PAIN CARDIAC HISTORY: CATHERIZATION: YES SURGERY: NO PROSTHETIC VALVE: NO PACEMAKER: NO MEASUREMENTS (cm) DIASTOLIC (NORMALS) SYSTOLIC (NORMALS) IVSd 1.1 (0.6-1.2) LA Diam 2.7 (1.9-4.0) LVEF 55-60% LVIDd 4.4 (3.5-5.7) LVIDs 3.2 (2.0-3.5) %FS 26% LVPWd 1.2 (0.6-1.2) Ao Diam 2.8 (2.0-3.7) 2 DIMENSIONAL ASSESSMENT: RIGHT ATRIUM: NORMAL LEFT ATRIUM: NORMAL RIGHT VENTRICLE: NORMAL LEFT VENTRICLE: NORMAL TRICUSPID VALVE: NORMAL MITRAL VALVE: NORMAL PULMONIC VALVE: NORMAL AORTIC VALVE: NORMAL PERICARDIAL EFFUSION: NONE AORTIC ROOT: NORMAL LEFT VENTRICULAR WALL MOTION: NORMAL. DOPPLER/COLOR FLOW: MILD TRICUSPID REGURGITATION. COMMENTS: NORMAL LEFT VENTRICULAR EJECTION FRACTION 55-60%. NORMAL WALL MOTION. MILD TRICUSPID REGURGITATION. TECHNOLOGIST: LALY BRAGG
--- NOTE | 2021-12-05 15:32 | CON ---
Date of Consultation: 12/05/2021 Reason For Consultation: Chest pain. History Of Present Illness: A 51-year-old female with history of coronary artery disease, status pos t ST-elevation myocardial infarction in 2013. LAD was a culprit, was treated urgently and the patien t had no complications and continued to have normal ejection fraction. Presented with chest pain whi le driving, severe in the chest, goes up to the left shoulder, and it is sharp in nature and she feel s that the pain is different than her pain when she had her heart attack, but at that time was purely indigestion. She said, however, taken nitroglycerin helps her pain and at the time of my evaluation , she had no further chest pain. Past Medical History: Coronary artery disease, hypertension, depression, [place]. Medications: Refer to reconciliation sheet for detailed list. Past Surgical History: Hysterectomy, tubal ligation, cardiac stent placement. Allergies: PENICILLIN. Family History: No premature coronary artery disease or cancer. Social History: She is a smoker. Does not drink or use any drugs. Review of Systems: All systems reviewed and they were negative except for what mentioned in HPI. Physical Examination: Vital Signs: Reviewed. Head and Neck: Pupils are equal, reactive to light. Intact eye movements. No JVD. No cervical lym phadenopathy. Neck is supple. Thyroid is not enlarged. Lungs: Clear to auscultation bilaterally. No rhonchi, rales, or crackles. No accessory muscle use. Heart: Regular rate and rhythm. No extra sounds. Abdomen: Soft, nontender. Bowel sounds positive. No organomegaly. No masses or hernia. No rigidi ty or rebound. Extremities: No edema, clubbing, or cyanosis. Intact pulses. Skin: No rash. Neurologic: Alert, awake, oriented x3. No acute focal deficits appreciated. Investigations: First 2 troponins were negative and creatinine 0.75. EKG is totally normal. Assessment And Recommendations: 1.Chest pain, it is atypical pain; however, she is known to have coronary artery disease, status pos t cardiac stent placement. Observation is warranted and trend 2 more sets of cardiac enzymes. Echo was done and reviewed it and she had normal ejection fraction and no wall motion abnormality. If car diac enzymes are negative and she continues to be asymptomatic and no further chest pain, then we bridgette l plan for an exercise stress test to be done as an outpatient. 2.Dyslipidemia. Recommend to start on Lipitor 40 mg at bedtime and continue the aspirin as well as beta-skinny. Thank you for the consult. SCARLETT Voice ID: [id number] Report ID: [id number]
[2021-12-05 20:44] VITALS: BMI 29.5
[2021-12-05] MEDS ORDERED: TEMAZEPAM 15 MG CAP PO PRN (20:54)
[2021-12-05] MEDS: METOPROLOL TAR 50 MG TAB PO SCH (21:33)
[2021-12-06 00:45] VITALS: O2SAT 94
[2021-12-06 02:05] LABS: Absolute Lymphocytes (CBC) 2.9 K/uL (0.7-4.9); Hematocrit 32.1 % (36.0-45.0); Lymphocytes % 37.9 % (15.3-44.8); MPV 8.5 fL (7.6-11.3); RBC Red Blood Cell Count 3.67 M/uL (3.86-4.86)
[2021-12-06 02:20] LABS: Potassium 3.9 mmol/L (3.5-5.1)
[2021-12-06] MEDS ORDERED: ASPIRIN EC 81 MG TAB PO SCH (09:00)
[2021-12-06] MEDS: METOPROLOL TAR 50 MG TAB PO SCH (09:00)
[2021-12-06 09:25] VITALS: BP 100/56; TEMP 97.3
--- NOTE | 2021-12-06 09:53 | EKG ---
Test Date: 2021-12-05 Test Time: 08:11:42 [employer] Paralegal: MEASUREMENT RESULTS: Intervals: Rate: 54 MO: 138 QRSD: 80 QT: 464 QTc: 440 [place]: P: -1 MO: 138 QRS: 72 T: 77 INTERPRETIVE STATEMENTS: Sinus bradycardia Otherwise normal ECG Compared to ECG 12/05/2021 07:50:39 Sinus rhythm no longer present Electronically Signed On 12-06-21 09:49:58 CDT by Mehrdad Ansari
--- NOTE | 2021-12-06 21:43 | P.DS ---
Admission Date: 12/05/21 Discharge Date: 12/06/21 Disposition: ROUTINE DISCHARGE Discharge Condition: GOOD Reason for Admission: Chest pain Consultations: Cardiology - Dr. Ansari Procedures: Problem List Chest pain h/o [place] HTN CAD HLD Brief History of Present Illness: 51yo F, PMH: CAD s/p postcardiac stenting 2013, presented to ED with sudden onset chest pain. Pain radiated across chest to left arm and jaw. Pain was relieved after 7 doses of nitroglycerin. She stated she had a stress test and echocardiogram in 2019 which were unremarkable. Initial troponin is negative. EKG demonstrated sinus bradycardia, no ST-T changes. Hospital Course: Patient's chest pain was evaluated by EKG, troponins, Chest x-ray, and echocardiogram, which were all normal. Cardiology was consulted. Recommended for patient to follow up in the office for stress testing. Recommended to continue aspirin, metoprolol, and her recently prescribed statin. No new medications on discharge. Chest pain etiology is unclear, possible coronary artery spasm, possible pleuritic component with patient's recent cough / respiratory illness last week. This was not aggravated by food, and less likely to be GERD/ulcer. She is non- tender on exam. If outpatient cardiac testing is normal, would recommend follow up with GI for EGD. Follow up in Cardiology office on Sunday at 830am to see Dr. Thomas - confirmed with Dr. Ansari Vital Signs/Physical Exam: Temp Pulse Resp BP Pulse Ox 97.3 F 64 18 100/56 L 95 12/06/21 08:00 12/06/21 09:00 12/06/21 08:00 12/06/21 09:00 12/06/21 08:00 General: Alert, In no apparent distress, Oriented x3 HEENT: Sclerae nonicteric Neck: Supple, No LAD Respiratory: Normal air movement Cardiovascular: No edema, Regular rate/rhythm, No murmurs Gastrointestinal: Soft and benign, Non-distended Musculoskeletal: No contractures, No tenderness Integumentary: No rashes, No significant lesion Neurological: Normal speech, Normal strength at 5/5 x4 extr, Normal affect Laboratory Data at Discharge: WBC 7.6 K/uL (4.3-10.9) 12/06/21 01:46 Hgb 10.9 g/dL (12.0-15.0) L 12/06/21 01:46 Hct 32.1 % (36.0-45.0) L 12/06/21 01:46 Plt Count 300 K/uL (152-406) 12/06/21 01:46 APTT 44.8 SECONDS (24.3-36.9) H 12/06/21 06:50 Sodium 140 mmol/L (136-145) 12/06/21 01:46 Potassium 3.9 mmol/L (3.5-5.1) 12/06/21 01:46 BUN 13 mg/dL (7-18) 12/06/21 01:46 Creatinine 0.70 mg/dL (0.55-1.3) 12/06/21 01:46 Glucose 119 mg/dL (74-106) H 12/06/21 01:46 Triglycerides 94 mg/dL (<150) 12/05/21 11:19 Cholesterol 170 mg/dL (<200) 12/05/21 11:19 HDL Cholesterol 39 mg/dL (40-60) L 12/05/21 11:19 Cholesterol/HDL Ratio 4.36 12/05/21 11:19 Home Medications: Aspirin 81 mg PO DAILY 11/20/13 Metoprolol Tartrate [Lopressor*] 50 mg PO DAILY 12/05/21 Temazepam [Restoril*] 15 mg PO BEDTIME PRN PRN 12/05/21 Diet: AHA Activity: Ad atul Followup: Janel Nielson MD [Primary Care Provider] - 1-2 Weeks (call to schedule an appointment ) Jonathan Thomas MD [ACTIVE - CAN ADMIT] - 12/12/21 8:30 am Time spent managing pt's care (in minutes): 45
== END 2021-12-06 10:59 | disposition home or self-care (01) ==
LOC: ER 07:47 → ERHOLD 10:22 → 2ND 20:01
PROVIDERS: ADMIT Internal Medicine; ATTEND Hospitalist
DX: R07.89 Other chest pain (principal); I25.10 Atherosclerotic heart disease of native coronary artery without angina pectoris; I10 Essential (primary) hypertension; E78.5 Hyperlipidemia, unspecified; I25.2 Old myocardial infarction; F32.A Depression, unspecified; F17.210 Nicotine dependence, cigarettes, uncomplicated; Z95.5 Presence of coronary angioplasty implant and graft; Z88.0 Allergy status to penicillin; Z90.710 Acquired absence of both cervix and uterus; Z20.822 Contact with and (suspected) exposure to COVID-19; Z82.49 Family history of ischemic heart disease and other diseases of the circulatory system; Z80.3 Family history of malignant neoplasm of breast; Z80.1 Family history of malignant neoplasm of trachea, bronchus and lung
CPT/HCPCS: 93005 ×2; 93306; 85025 ×2; 80048 ×2; 36415; 80061; 85730 ×5; 84484 ×4; 83880; 71045; 94760; 96375; 96374; 99285; U0003; J1644 ×3; J2405; G0378 ×3